=== PATIENT | female | born 1985 | race Caucasian/White ===

== ENCOUNTER 2020-02-05 14:06 | Outpatient (CLI) | payer OTHER, SELFPAY ==
--- NOTE | ~2020-02-05 | US_ITS ---
US breast RT complete DATE: 02/05/2020 14:53 INDICATION: Right breast lump felt by patient 3 weeks ago, but not currently TECHNIQUE: High-resolution ultrasound imaging of the complete right breast COMPARISON: None FINDINGS: No suspicious mass lesion or shadowing is evident. IMPRESSION: BI-RADS Category 1: Negative Recommendation: Routine mammographic screening beginning at age 40. Reviewed, dictated and finalized at [facility]. Reviewed, dictated and finalized at [facility].
== END 2020-02-05 14:07 | disposition home or self-care (01) ==
PROVIDERS: PCP Emergency Medicine; Visit Provider Nurse Practitioner Obstetrics & Gynecology
DX: N63.10 Unspecified lump in the right breast, unspecified quadrant (principal)
CPT/HCPCS: 76641

== ENCOUNTER 2020-02-10 04:28 | Outpatient (CLI) | payer OTHER, SELFPAY ==
[2020-02-10 21:19] LABS: SARS-CoV-2 RNA PCR Positive
== END 2020-02-10 04:29 | disposition home or self-care (01) ==
LOC: ANHCOVIDDT 04:28
PROVIDERS: PCP Emergency Medicine; Visit Provider Obstetrics & Gynecology
DX: Z01.818 Encounter for other preprocedural examination (principal); Z11.59 Encounter for screening for other viral diseases; U07.1 COVID-19
CPT/HCPCS: 87635; C9803; U0003

== ENCOUNTER 2020-02-24 02:08 | Outpatient (CLI) | payer OTHER, SELFPAY ==
[2020-02-24 18:09] LABS: SARS-CoV-2 RNA PCR Positive
== END 2020-02-24 02:09 | disposition home or self-care (01) ==
LOC: ANHCOVIDDT 02:09
PROVIDERS: PCP Emergency Medicine; Visit Provider Obstetrics & Gynecology
DX: Z01.818 Encounter for other preprocedural examination (principal); Z11.59 Encounter for screening for other viral diseases; U07.1 COVID-19
CPT/HCPCS: 87635; C9803; U0003

== ENCOUNTER 2020-03-02 00:28 | Outpatient (CLI) | payer OTHER, SELFPAY ==
[2020-03-02 18:31] LABS: SARS-CoV-2 RNA PCR Positive
== END 2020-03-02 00:29 | disposition home or self-care (01) ==
LOC: ANHCOVIDDT 00:28
PROVIDERS: PCP Emergency Medicine; Visit Provider Obstetrics & Gynecology
DX: U07.1 COVID-19 (principal)
CPT/HCPCS: 87635; C9803; U0003

== ENCOUNTER 2020-03-18 14:01 | Emergency (ER) | payer OTHER, SELFPAY ==
[2020-03-18 14:18] VITALS: BP 113/70; PULSE 73; RESP 16; TEMP 36.4; O2SAT 100
--- NOTE | 2020-03-18 14:30 | ED.GENADULT ---
HPI - General Adult General Chief complaint: Dizziness Stated complaint: Light-headed/ dizziness Time Seen by Provider: 03/18/20 14:30 Source: patient Mode of arrival: ambulatory Limitations: no limitations History of Present Illness HPI narrative: 34-year-old female patient presents to the [facility] with complaints of dizziness that started yesterday. Patient states that she noticed that when she would get up really quick from a laying position or bending over when she was giving her kids a bath she would have episodes of dizziness. Patient states it did not last and that it did go back to normal eventually. Denies any fevers, nausea, vomiting or diarrhea. Patient states that she was diagnosed with COVID-19 in January but has recovered without any difficulty. Related Data Home Medications Medication Instructions Recorded Confirmed Calcium 600 + D(3) 1 tablet PO DAILY 10/25/19 03/18/20 Thyroid Booster Supplement 1 tablet PO DAILY 10/25/19 03/18/20 cyanocobalamin (vitamin B-12) 1,000 mcg IM WEEKLY 10/25/19 03/18/20 cyclosporine [Restasis] 1 drp OPHTHALMIC (EYE) BID 10/25/19 03/18/20 simvastatin 10 mg PO DAILY 10/25/19 03/18/20 Allergies Allergy/AdvReac Type Severity Reaction Status Date / Time morphine Allergy Unknown BLISTER/ADEN Verified 03/18/20 14:21 H Review of Systems Review of Systems: Narrative: CONSTITUTIONAL: Denies fever, chills, or sweats. EYES: Denies visual changes, redness, or discharge. ENT: Denies rhinorrhea, congestion, sore throat, or otalgia. CARDIOVASCULAR: Denies chest pain, palpitations, or edema. RESPIRATORY: Denies cough or dyspnea. GASTROINTESTINAL: Denies abdominal pain, nausea, vomiting, or diarrhea. GENITOURINARY: Denies dysuria or hematuria. SKIN: Denies rash or itching. MUSCULOSKELETAL: Denies back pain, joint pain, or myalgia. NEUROLOGIC: Denies headache, numbness, or weakness. Positive dizziness with position changes PSYCHIATRIC: Denies anxiety or depression. [facility] Family History Family History Sibling Asthma Father Family history of elevated blood lipids Mother Family history of cardiac disorder Social History Social History (Reviewed 08/03/20 @ 14:30 by JAIRON Cuellar Smoking status: Never smoker Alcohol intake: current Gender identity (if verbalized by the patient): Female Comments At the time of my signature I agree with nursing past medical history, surgical, social, and family history. There is no relevant family history pertinent to the presenting complaint. Exam Narrative: Exam Narrative: GENERAL: Well-appearing, well-nourished, and in no acute distress. HEAD: Normocephalic, atraumatic. EYES: PERRLA and EOMI. ENT: Nares clear, no rhinorrhea or epistaxis. Mucous membranes moist. NECK: Supple. No lymphadenopathy CHEST: Clear to auscultation. No respiratory distress. HEART: Regular rate and rhythm. No murmur heard. Normal peripheral pulses. ABDOMEN: Soft, nontender, nondistended, normal active bowel sounds. EXTREMITIES: Normal range of motion. No edema. SKIN: Warm, dry, no rash. NEURO: Alert and oriented x4, GCS 15. Cranial nerves II through XII grossly intact. No focal neurological deficits. Normal muscle strength and tone. Normal deep tendon reflexes. Negative Babinski, normal finger to nose coordination he had normal heel to campbell glide. Speech is clear. Normal gait. Negative Romberg and no pronator drift Course Vital Signs Vital signs: Vital Signs Temperature 36.4 C 03/18/20 14:18 Pulse Rate 73 03/18/20 14:18 Respiratory Rate 16 03/18/20 14:18 Blood Pressure 113/70 03/18/20 14:18 Pulse Oximetry 100 03/18/20 14:18 Temperature 36.4 C 03/18/20 14:18 Pulse Rate 73 03/18/20 14:18 Respiratory Rate 16 03/18/20 14:18 Blood Pressure 113/70 03/18/20 14:18 Pulse Oximetry 100 03/18/20 14:18 Vital signs reviewed. Medical Decision Making Differential Diagnosi
== END 2020-03-18 15:08 | disposition home or self-care (01) ==
PROVIDERS: Emergency Provider Nurse Practitioner Family; PCP Emergency Medicine
DX: H81.10 Benign paroxysmal vertigo, unspecified ear (principal)
CPT/HCPCS: 99213; G0463

== ENCOUNTER 2020-03-25 01:51 | Outpatient (CLI) | payer OTHER, SELFPAY ==
[2020-03-25 18:20] LABS: SARS-CoV-2 RNA PCR Negative
== END 2020-03-25 01:52 | disposition home or self-care (01) ==
LOC: ANHCOVIDDT 01:51
PROVIDERS: PCP Emergency Medicine; Visit Provider Obstetrics & Gynecology
DX: Z01.812 Encounter for preprocedural laboratory examination (principal); Z11.59 Encounter for screening for other viral diseases
CPT/HCPCS: 87635; C9803; U0003

== ENCOUNTER 2020-03-27 01:43 | Day surgery (SDC) | payer OTHER, SELFPAY ==
[2019-10-25 11:22] VITALS: BMI 28.9
[2020-01-30 17:24] VITALS: BMI 29.2
[2020-02-13 15:17] VITALS: BMI 29.2
[2020-03-27] VITALS (8 sets, daily range): BP systolic 90–108; BP diastolic 54–69; PULSE 61–84; RESP 12–16; TEMP 36.3–36.9; O2SAT 96–100
[2020-03-27] MEDS: LACTATED RINGERS 1,000 ML 30 ML IV CONT ×2 (06:25→09:20)
[2020-03-27] MEDS: KETOROLAC 15 MG/ML VIAL (*BKC) IV PUSH (06:32)
[2020-03-27] MEDS: ACETAMINOPHEN 500 MG TABLET 1000 MG PO (06:32)
--- NOTE | 2020-03-27 06:55 | WPDHPUPDATE1 ---
History and Physical Update Update Date/Time: 03/27/20 06:55 History and Physical has been reviewed, including an updated exam of the patient. There are NO changes in the patient's condition. Risks, benefits, and alternatives have been discussed and questions answered. Patient agrees to proceed with procedure.
--- NOTE | 2020-03-27 06:59 | WPDANESEPPF ---
Anes - Initial Pre Proc Eval Procedure: Operation Date: 03/27/20 07:30 Proposed Procedures p Diagnostic Laparoscopy - April Denson MD Date/Time: 03/27/20 06:59 Surgeon: April Denson MD Pre Op Diagnosis: Dyspareunia, Pelvic Pain Patient Data Age: 35 Gender: F Height: 5 ft Weight: 67 kg Last Vital Signs Temp 36.3 C L 03/27/20 06:16 Pulse 69 03/27/20 06:16 Resp 16 03/27/20 06:16 BP 101/68 03/27/20 06:16 Pulse Ox 100 03/27/20 06:16 Allergies Allergy/AdvReac Type Severity Reaction Status Date / Time morphine Allergy Unknown BLISTER/ADEN Verified 03/27/20 06:50 H Home Medications Medication Instructions Recorded Confirmed Type Calcium 600 + D(3) 1 tablet PO DAILY 10/25/19 03/27/20 History Thyroid Booster Supplement 1 tablet PO DAILY 10/25/19 03/27/20 History cyanocobalamin (vitamin B-12) 1,000 mcg IM WEEKLY 10/25/19 03/27/20 History cyclosporine [Restasis] 1 drp OPHTHALMIC (EYE) BID 10/25/19 03/27/20 History simvastatin 10 mg PO DAILY 10/25/19 03/27/20 History meclizine 25 mg PO TID PRN #14 tablet 03/18/20 03/27/20 Rx Patient hx anesthesia problems: other (vertigo) Family hx anesthesia problems: none PMFSH Past Medical History Medical History Hyperlipidemia Family History Family History Sibling Asthma Father Family history of elevated blood lipids Mother Family history of cardiac disorder Social History Social History Smoking status: Never smoker Alcohol intake: current Gender identity (if verbalized by the patient): Female Anes - Eval Final PreProcedure Day of Procedure 03/27/20 06:59 Patient weight: overweight Heart: regular rate and rhythm Lungs: clear to auscultation Airway: Mallampati scale class II Neurological: alert and oriented Last oral intake: >/= 8 hours ASA classification: II Emergent: no Anesthetic plan: proceed Anesthesia type and monitoring: general ETT and standard monitoring Informed Consent: The patient's anesthetic plan and its attendant risks and benefits were discussed with the patient/family/POA. Questions were solicited and answers provided to the satisfaction of the patient/family/POA.
--- NOTE | 2020-03-27 07:03 | PM.IMHP ---
H&P: HPI History of Present Illness Date/Time: 03/27/20 07:03 Chief complaint: Dyspareunia, Pelvic Pain Narrative: Sruthi Koch is a 35 year old female With longstanding pelvic pain. She is known to have pelvic adhesions previously. we have agreed to proceed with diagnostic laparoscopy. She understands the procedure. It was explained to her in detail. She understands that injuries may occur during the surgery result in hospitalization, more surgery, and severe illness. She understands risk of injury to proceed [facility] is risk of hemorrhage and infection. Review of Systems Constitutional: Constitutional: Reports no additional constitutional complaints, Denies fatigue, Denies headache(s), Denies lethargy and Denies weakness Eyes: Eyes: Reports no additional eye complaints, Denies blurry vision and Denies photophobia ENT: Reports as per HPI, Denies headache(s) and Denies neck pain Cardiovascular: Cardiovascular: Denies chest pain, Denies diaphoresis, Denies leg edema, Denies palpitations and Denies dyspnea Respiratory: Respiratory: Denies hemoptysis, Denies dyspnea and Denies wheezing Gastrointestinal: Gastrointestinal: Denies abdominal pain, Denies melena, Denies bloating, Denies hematochezia, Denies nausea and Denies vomiting Genitourinary: Genitourinary: Reports no additional female genitourinary complaints Musculoskeletal: Musculoskeletal: Denies joint swelling, Denies neck pain, Denies numbness and Denies stiffness Neurologic: Denies Abnormal speech present, Denies confusion, Denies headache(s), Denies numbness and Denies weakness Psychiatric: Psychiatric: Denies anxiety, Denies confusion, Denies depression, Denies homicidal ideation and Denies suicidal ideation Endocrine: Endocrine: Denies fatigue and Denies palpitations Allergic/Immunologic: Allergic/Immunologic: Denies wheezing PMFSH Past Medical History Medical History Hyperlipidemia Family History Family History Sibling Asthma Father Family history of elevated blood lipids Mother Family history of cardiac disorder Social History Social History Smoking status: Never smoker Alcohol intake: current Gender identity (if verbalized by the patient): Female Meds Home Medications and Allergies Home Medications Medication Instructions Recorded Confirmed Type Calcium 600 + D(3) 1 tablet PO DAILY 10/25/19 03/27/20 History Thyroid Booster Supplement 1 tablet PO DAILY 10/25/19 03/27/20 History cyanocobalamin (vitamin B-12) 1,000 mcg IM WEEKLY 10/25/19 03/27/20 History cyclosporine [Restasis] 1 drp OPHTHALMIC (EYE) BID 10/25/19 03/27/20 History simvastatin 10 mg PO DAILY 10/25/19 03/27/20 History meclizine 25 mg PO TID PRN #14 tablet 03/18/20 03/27/20 Rx Allergies Allergy/AdvReac Type Severity Reaction Status Date / Time morphine Allergy Unknown BLISTER/ADEN Verified 03/27/20 06:50 H Vital Signs Vital Signs - 24 hr 03/27/20 06:16 Temperature 97.4 F L Pulse Rate 69 Respiratory Rate 16 Blood Pressure 101/68 Pulse Oximetry 100 Exam Const: General: healthy appearing, comfortable and no acute distress; No confusion Orientation/consciousness: No confusion Eyes: Direct Ophthalmoscopy: No photophobia Resp: Auscultation: clear to auscultation bilaterally, no rales, no rhonchi and no wheezes Cardio: Rate: regular rate Heart sounds: no click, no murmurs and no rubs GI: Inspection: non-distended GI Palp: No abdominal tenderness Auscultation: normal bowel sounds Neuro: General: No confusion Speech: No Abnormal speech present Extrem: General: normal to inspection, no pedal edema and no calf tenderness Assessment and Plan Assessment and plan (1) Pelvic pain: Code(s): R10.2 - Pelvic and perineal pain Status: Acute Assess
[2020-03-27] MEDS: SCOPOLAMINE 1.5 MG PATCH TRANSDERM (07:19)
--- NOTE | 2020-03-27 09:27 | PM.PROC ---
Procedure Note - Detailed Date of procedure: 03/27/20 Pre-op diagnosis: Dyspareunia, Pelvic Pain Procedure performed: Diagnostic laparoscopy, left salpingectomy, adhesiolysis-1 hour Description of procedure: The patient was taken the operating room. She was prepped and draped in the dorsal lithotomy position after induction of general anesthesia. A 5 mm left upper quadrant incision was made in the abdominal skin with a scalpel. A 5 mm trocar was inserted the intra-abdominal cavity under direct visualization of the scope. A 5 mm left lower quadrant incision was made with the scalp on the abdominal skin and a 5 mm trocar was inserted the intra-abdominal cavity under direct visualization of the scope. A 5 mm infraumbilical incision was made with scalpel and a 5 mm trocar was inserted into the intra-abdominal cavity under direct visualization of the scope. The fallopian tube on the left was removed using cautery and scissors. There was a hydrosalpinx there. The paratubal tissue was cauterized and transected. The specimen 2nd at the left lower quadrant trocar site. 1 hour adhesiolysis was performed. Using sharp and blunt dissection and instilling the bladder with normal saline. The bladder, uterus, cervix, anterior pelvis were all . Interceed was placed in this space. The pelvis was irrigated with copious amounts of normal saline. The pneumoperitoneum was reduced. The trocars were removed. The patient was taken recovery room stable condition. Sponge lap and needle counts were correct x2. Anesthesia: GETA Surgeon: April Denson MD Estimated blood loss (mL): 50 Drains: No Packing: No Pathology: yes Complications: No immediate complications Condition: stable Disposition: PACU Findings: Dense adhesions between the anterior pelvis, bladder and the uterus. There was a hydrosalpinx on the left side.
== END 2020-03-27 11:27 | disposition home or self-care (01) ==
PROVIDERS: PCP Emergency Medicine; Visit Provider Obstetrics & Gynecology
PROC: (CPT 49320; principal; 2020-03-27 07:30)
DX: R10.2 Pelvic and perineal pain (principal); N94.10 Unspecified dyspareunia; N73.6 Female pelvic peritoneal adhesions (postinfective); N70.11 Chronic salpingitis; E78.5 Hyperlipidemia, unspecified
CPT/HCPCS: 58661; 88302; A9270; J0330; J1100; J1885; J2250; J2405; J2704; J3010; J7030; J7120

== ENCOUNTER 2020-08-26 13:35 | Outpatient (CLI) | payer OTHER, SELFPAY | END 2020-08-26 13:36 | disposition home or self-care (01) | LOC: ANHSURGERY 13:38 | PROVIDERS: PCP Emergency Medicine; Visit Provider Obstetrics & Gynecology | DX: Z01.812 Encounter for preprocedural laboratory examination (principal); R10.2 Pelvic and perineal pain | CPT/HCPCS: 36415; 86850; 86900; 86901 ==

== ENCOUNTER 2020-08-31 00:40 | Outpatient (CLI) | payer OTHER, SELFPAY ==
[2020-08-31 18:47] LABS: SARS-CoV-2 RNA PCR Negative
== END 2020-08-31 00:41 | disposition home or self-care (01) ==
LOC: ANHCOVIDDT 00:41
PROVIDERS: PCP Emergency Medicine; Visit Provider Obstetrics & Gynecology
DX: Z01.812 Encounter for preprocedural laboratory examination (principal); Z20.822 Contact with and (suspected) exposure to COVID-19
CPT/HCPCS: C9803; U0003; U0005

== ENCOUNTER 2020-09-04 01:56 | Day surgery (SDC) | payer OTHER, SELFPAY ==
[2020-08-23 14:24] VITALS: BMI 29.2
[2020-09-04] VITALS (11 sets, daily range): BP systolic 85–110; BP diastolic 52–63; PULSE 55–86; RESP 12–18; TEMP 36.7–37.1; O2SAT 94–100
--- NOTE | 2020-09-04 08:34 | WPDANESEPPF ---
Anes - Initial Pre Proc Eval Procedure: Operation Date: 09/04/20 13:00 Proposed Procedures p Total Laparoscopic Hysterectomy - April Denson MD Date/Time: 09/04/20 08:34 Surgeon: April Denson MD Pre Op Diagnosis: Pelvic Pain, Dyspareunia Patient Data Age: 35 Gender: F Height: 1.52 m Weight: 68.04 kg Allergies Allergy/AdvReac Type Severity Reaction Status Date / Time morphine Allergy Unknown LITTLE Verified 09/04/20 11:12 ITCHY BLISTER ON CHEST Home Medications Medication Instructions Recorded Confirmed Type Calcium 600 + D(3) 1 tablet PO DAILY 10/25/19 08/23/20 History Thyroid Booster Supplement 1 tablet PO DAILY 10/25/19 08/23/20 History levothyroxine 50 mcg PO DAILY 08/23/20 08/23/20 History Patient hx anesthesia problems: none Family hx anesthesia problems: none PMFSH Past Medical History Medical History (Updated 09/04/20 @ 08:35 by Martinez Mary MD) Asthma Hyperlipidemia Overweight (BMI 25.0-29.9) Family History Family History Sibling Asthma Father Family history of elevated blood lipids Mother Family history of cardiac disorder Social History Social History Smoking status: Never smoker Alcohol intake: current Substance use: never Substance use type: does not use Living arrangements: with family Gender identity (if verbalized by the patient): Female Spiritual care concerns: No Anes - Eval Final PreProcedure Day of Procedure 09/04/20 08:34 Patient weight: overweight Heart: regular rate and rhythm Lungs: clear to auscultation and normal air movement Airway: Mallampati scale class II Neurological: alert and oriented Last oral intake: >/= 8 hours ASA classification: II Emergent: no Anesthetic plan: proceed Anesthesia type and monitoring: general ETT Informed Consent: The patient's anesthetic plan and its attendant risks and benefits were discussed with the patient/family/POA. Questions were solicited and answers provided to the satisfaction of the patient/family/POA.
[2020-09-04] MEDS: ACETAMINOPHEN 500 MG TABLET 1000 MG PO (11:09)
[2020-09-04] MEDS: LACTATED RINGERS 1,000 ML 30 ML IV CONT ×2 (11:20→14:27)
[2020-09-04] MEDS: KETOROLAC 15 MG/ML VIAL (*BKC) IV PUSH (11:26)
--- NOTE | 2020-09-04 11:58 | WPDHPUPDATE1 ---
History and Physical Update Update Date/Time: 09/04/20 11:58 History and Physical has been reviewed, including an updated exam of the patient. There are NO changes in the patient's condition. Risks, benefits, and alternatives have been discussed and questions answered. Patient agrees to proceed with procedure.
[2020-09-04] MEDS: ceFAZolin 2 GM/D5W 50 ML 2 GM/50 ML BAG IVPB (12:24)
--- NOTE | 2020-09-04 14:30 | PM.PROC ---
Procedure Note - Detailed Date of procedure: 09/04/20 Pre-op diagnosis: Pelvic Pain, Dyspareunia Myoma Post-op diagnosis: same Procedure performed: Total laparoscopic hysterectomy. Description of procedure: The patient was taken to the operating room. She was prepped and draped in the dorsal lithotomy position. A speculum was placed in the vagina. The cervix was grasped with a tenaculum. Stay sutures were placed at 3 and 9:00 a.m. of 0 Vicryl. The stay sutures were brought through the Britt up. The OXANA manipulator was placed in the vagina with a fixed Britt cup. The cup was then pushed up around the cervix. The sutures were tied to the handle of the OXANA manipulator. A 5 mm incision was made on the abdominal skin of the left upper quadrant using a scalpel. A 5 mm trocar was inserted into the intra-abdominal cavity under direct visualization the scope. Pneumoperitoneum was achieved. An 11 mm incision was made in the left lower quadrant of the abdomen with a scalpel. A 11 mm trocar was inserted into the intra-abdominal cavity under direct visualization the scope. A 5 mm periumbilical incision was made. A 5 mm scope was placed into the intra-abdominal cavity under direct visualization of the scope. The right fallopian tube was removed. The paratubal tissue was cauterized transected with LigaSure cautery from the distal portion by the ovary around to the cornual area. The tube was transected and amputated. It was removed the left lower quadrant trocar site. The suspensory ligament of the ovary was cauterized and transected with ligature cautery in a bilateral fashion. The fallopian tubes were cauterized and transected in a bilateral fashion with LigaSure cautery. The round ligaments were cauterized and transected in bilateral fashion with LigaSure cautery. The round ligaments were cauterized and transected bilaterally with LigaSure cautery. The broad ligaments were cauterized and transected along the lateral aspects of the uterus down the level of the uterine arteries. A bladder flap was created using sharp and blunt dissection. The ureters were dissected out bilaterally down to the level of the uterine arteries. They could be visualized from the pelvic brim down the uterine arteries. Staying very close to the cervix the parametrium was cauterized transected in a stepwise fashion down to the level of the Britt cup. The Bladder flap was moved distally over the Britt cup using sharp and blunt dissection. The impression of the entire cup was visualized around the cervix. An incision was made with unipolar cautery down under the Britt cup creating a colpotomy incision all the way around the cervix. The uterus was taken out through the vagina. A pneumo occluder was placed in the vagina. The vagina was closed with 0 V lock suture in a running fashion. The ureters were identified again and found to be intact to the level of the uterine arteries. The pelvis was irrigated with a copious amount of antibiotic irrigation. The pneumoperitoneum was reduced. The trocars were removed. The skin was closed subcuticular 4 Monocryl covered with Dermabond. The pneumo occluder was removed from the vagina. The vagina was irrigated with Betadine. The patient tolerated the procedure well. She was taken to the recovery room in stable condition. Sponge lap and needle counts were correct x2. Anesthesia: GETA Surgeon: April Denson MD Estimated blood loss (mL): 200 Drains: No Packing: No Pathology: yes Complications: No immediate complications Condition: stable Disposition: PACU Findings: Grossly normal appearing tubes and ovaries. Uterus - XXX
[2020-09-04] MEDS: fentaNYL CITRATE INJ (*CRX) 100 MCG/2 ML VIAL 25 MCG IV PUSH ×5 (14:43→15:44)
[2020-09-04] MEDS: HYDROmorphone HCL INJ (*CRX) 1 MG/ML SYR 0.25 MG IV PUSH ×8 (14:57→15:35)
--- NOTE | 2020-09-04 15:53 | PC.NURSE ---
This patient, Sruthi Koch, was received from PACU per bed to room 289. Patient oriented to unit policies and routines
[2020-09-04] MEDS: DEXTROSE 5%/0.45% SOD CHL 1,000 ML 125 ML IV CONT (16:11)
[2020-09-04] MEDS: KETOROLAC 30 MG/ML VIAL (*BKC) IV PUSH (16:13)
[2020-09-04] MEDS: ONDANSETRON INJ 4 MG/2 ML VIAL IV PUSH (16:41)
[2020-09-04] MEDS: HYDROcodone/acetaminophen (*CRX) 10-325 MG TABLET 1 TAB PO ×2 (17:35→21:14)
[2020-09-04] MEDS: SCOPOLAMINE 1.5 MG PATCH TRANSDERM (18:23)
[2020-09-04] MEDS: diphenhydrAMINE HCl INJ 50 MG/ML VIAL (18:26)
[2020-09-04] MEDS: METOCLOPRAMIDE HCL INJ 10 MG/2 ML VIAL IV PUSH (18:35)
[2020-09-05] VITALS: BP 99/58; PULSE 76; RESP 14; TEMP 37.1; O2SAT 99
[2020-09-05] MEDS: HYDROcodone/acetaminophen (*CRX) 10-325 MG TABLET 1 TAB PO (00:42)
[2020-09-05] MEDS: IBUPROFEN 600 MG TABLET PO ×2 (00:42→07:38)
[2020-09-05] MEDS: HYDROcodone/acetaminophen (*CRX) 5-325 MG TABLET 1 TAB PO ×3 (04:22→10:30)
[2020-09-05 04:28] VITALS: BP 89/47; PULSE 72; RESP 14; TEMP 36.8; O2SAT 99
--- NOTE | 2020-09-05 07:35 | WPDANESPN ---
Anes - Prog Note Post-Op Date/Time: 09/05/20 07:35 Cardiovascular status: normal Respiratory status: normal Airway patency: baseline Mental status: baseline Post-Op hydration status: normal Vital Signs: Last Vital Signs Temp 36.8 C 09/05/20 04:28 Pulse 72 09/05/20 04:28 Resp 14 09/05/20 04:28 BP 89/47 L 09/05/20 04:28 Pulse Ox 99 09/05/20 04:28 Pain Score (VAS): 0 I/O: Intake & Output 09/04/20 09/04/20 09/05/20 15:59 23:59 07:59 Intake Total 550 500 500 Output Total 30 1350 Balance 520 -850 500 Post-procedural complaints: none Patient Feedback: Patient satisfied with anesthetic care.
[2020-09-05 07:45] VITALS: BP 86/56; PULSE 60; RESP 18; TEMP 37.3; O2SAT 100
--- NOTE | 2020-09-05 08:03 | PM.GYNPNOP ---
TACTICAL DECEPTION PLANS OFFICER - A/P Postoperative Procedures: Procedures Operation Date: 09/04/20 13:00 Actual Procedures Side Surgeon p Total Laparoscopic Hysterectomy, Right Salpingectomy Not Applicable April Denson MD Postoperative day: 1 Postoperative status: doing well and other (Tollerating Regular Diet) Postoperative plan: routine post-op care and discharge Time Spent With Patient Time: Total time spent is greater than 50% in coordination of care (as documented) at patient's floor/unit and/or counseling patient: Time with patient: 15 - 25 minutes TACTICAL DECEPTION PLANS OFFICER- PN:Subj Post-Op Subjective Date/time seen: 09/05/20 08:03 Subjective: patient reports feeling better, pain is well controlled and patient is tolerating oral intake Exam Const: General: cooperative, healthy appearing, comfortable and no acute distress Resp: Auscultation: no crackles, no rales, no rhonchi and no wheezes Cardio: Rhythm: regular rhythm Heart sounds: no click and no murmurs GI: Inspection: non-distended Auscultation: normal bowel sounds Other: Incisions - CDI Extrem: General: normal to inspection, no pedal edema and no calf tenderness TACTICAL DECEPTION PLANS OFFICER - PN: Obj Data Vital Signs Vital Signs: Vital Signs - 24 hr 09/04/20 10:56 09/04/20 14:27 09/04/20 14:40 Temperature 98.8 F 98.0 F Pulse Rate 62 86 55 L Respiratory Rate 16 14 12 Blood Pressure 110/62 91/55 L 100/63 Pulse Oximetry 100 100 100 09/04/20 14:55 09/04/20 15:10 09/04/20 15:25 Temperature Pulse Rate 63 59 L 62 Respiratory Rate 12 12 12 Blood Pressure 104/62 94/56 L 95/54 L Pulse Oximetry 97 96 95 09/04/20 15:40 09/04/20 16:00 09/04/20 16:15 Temperature 98.2 F Pulse Rate 79 65 60 Respiratory Rate 12 18 Blood Pressure 98/55 L 97/57 L 89/60 L Pulse Oximetry 94 99 99 09/04/20 17:00 09/04/20 17:30 09/05/20 00:00 Temperature 98.8 F Pulse Rate 59 L 63 76 Respiratory Rate 18 14 Blood Pressure 88/53 L 85/52 L 99/58 L Pulse Oximetry 96 95 99 09/05/20 04:28 Temperature 98.2 F Pulse Rate 72 Respiratory Rate 14 Blood Pressure 89/47 L Pulse Oximetry 99 Intake/Output Intake/Output: Intake & Output 09/02/20 09/03/20 09/04/20 09/05/20 23:59 23:59 23:59 23:59 Intake Total 1050 500 Output Total 1380 Balance -330 500 Meds/Results Medications: Active Medications Generic Name Dose Route Start Last Admin Trade Name Freq PRN Reason Stop Dose Admin Hydrocodone Bitart/Acetaminophen 1 tab 09/04/20 15:51 09/05/20 07:38 Hydrocodone/Acetaminophen (*Crx) 5-325 Mg Tablet PO 1 tab Q3H PRN Administration Pain Rated 5 or Less Hydrocodone Bitart/Acetaminophen 1 tab 09/04/20 15:51 09/05/20 00:42 Hydrocodone/Acetaminophen (*Crx) 10-325 Mg Tablet PO 1 tab Q3H PRN Administration Pain Rated 6 or Greater Dextrose/Sodium Chloride 1,000 mls @ 125 mls/hr 09/04/20 15:51 09/05/20 00:42 Dextrose 5% Sodium Chloride 0.45% IV CONT Not Given .Q8H EMIR Ibuprofen 600 mg 09/04/20 15:51 09/05/20 07:38 Ibuprofen 600 Mg Tablet PO 600 mg Q6H PRN Administration Cramping Ketorolac Tromethamine 30 mg 09/04/20 15:51 09/04/20 16:13 Ketorolac 30 Mg/Ml Vial (*Bkc) IV PUSH 09/09/20 15:52 30 mg Q6H PRN Administration Pain Rated 4-6 Levothyroxine Sodium 50 mcg 09/05/20 06:30 09/05/20 07:34 Levothyroxine Sodium 50 Mcg Tablet PO Not Given DAILY@0630 EMIR Metoclopramide HCl 10 mg 09/04/20 18:18 09/04/20 18:35 Metoclopramide Hcl Inj 10 Mg/2 Ml Vial IV PUSH 10 mg Q6HR PRN Administration Nausea And Vomiting Naloxone HCl 0.1 mg 09/04/20 15:51 Naloxone Hcl 0.4 Mg/Ml Vial IV PUSH Q2M PRN Respiratory rate less than 10 Ondansetron HCl 4 mg 09/04/20 15:51 09/04/20 16:41 Ondansetron Inj 4 Mg/2 Ml Vial IV PUSH 4 mg Q6H PRN Administration Nausea And Vomiting
== END 2020-09-05 11:11 | disposition home or self-care (01) ==
LOC: ANHSURGERY 10:46 → ANHOB2 15:53
PROVIDERS: PCP Emergency Medicine; Visit Provider Obstetrics & Gynecology
PROC: 0UT9FZZ Resection of Uterus, Via Natural or Artificial Opening With Percutaneous Endoscopic Assistance (ICD-10-PCS; CPT 58571; principal; 2020-09-04 13:00)
DX: R10.2 Pelvic and perineal pain (principal); N94.12 Deep dyspareunia; N80.0 Endometriosis of uterus; D25.1 Intramural leiomyoma of uterus; D25.2 Subserosal leiomyoma of uterus; N94.4 Primary dysmenorrhea
CPT/HCPCS: 58571; 88307; 88342; 99199; A9270; J0330; J0690; J1100; J1170; J1200; J1885; J2250; J2370; J2405; J2704; J2710; J2765; J3010; J7030; J7120

== ENCOUNTER 2020-09-13 20:58 | Emergency (ER) | payer OTHER, SELFPAY ==
--- NOTE | ~2020-09-13 | CT_ITS ---
EXAMINATION: CTA chest PE protocol DATE: 09/13/2020 22:06 INDICATION: Chest pain, shortness of breath TECHNIQUE: Computed tomography angiography (CTA) of the chest was performed with 100 mL Omnipaque-350 intravenous contrast timed to evaluate the pulmonary arteries. Coronal maximum intensity projection 3D-reconstructions were created by the technologist. Automated exposure control and iterative reconst ruction technique were employed. Exam dose: 313.25 mGy-cm total exam DLP. COMPARISON: 11/24/2018 CT pulmonary scan 09/13/2020 PA and lateral chest FINDINGS: There is moderate enhancement of the pulmonary arteries and no apparent pulmonary embolism. No thoracic aortic dissection or aneurysm. Normal heart size. No pericardial or pleural effusion. No hilar or mediastinal mass lesion or lymphadenopathy. The lungs are clear of infiltrate or consolidation. IMPRESSION: Negative examination; no apparent pulmonary emboli Reviewed, dictated and finalized at [facility]. Reviewed, dictated and finalized at [facility]. CLE FARE COLLECTOR
--- NOTE | ~2020-09-13 | XR_ITS ---
XR chest 2V DATE: 09/13/2020 21:23 INDICATION: Mid right-sided chest pain. Hysterectomy 9 days ago. History of asthma. TECHNIQUE: PA and lateral views COMPARISON: 01/10/2019 2 view chest FINDINGS: Normal heart size. No hilar or mediastinal enlargement. No pulmonary infiltrate or consolid ation, pleural effusion or pulmonary vascular congestion or pneumothorax. IMPRESSION: No active cardiopulmonary disease Reviewed, dictated and finalized at [facility]. ILIZATION TECH
[2020-09-13 21:00] VITALS: BP 109/73; PULSE 82; RESP 18; TEMP 36.2; O2SAT 100
--- NOTE | 2020-09-13 21:13 | ECG_ITS ---
Measurements Intervals [place] Rate: 88 P: 56 AK: 144 QRS: 24 QRSD: 90 T: 58 QT: 356 QTc: 431 Interpretive Statements SINUS RHYTHM INCOMPLETE RIGHT BUNDLE BRANCH BLOCK NONSPECIFIC T-WAVE ABNORMALITY- ANT/INF LEADS BORDERLINE ECG Electronically Signed On 09-13-2020 21:58:58 WATCH ENGINE OPERATOR by Dandy Frost D.O.
[2020-09-13 21:23] LABS: Basophils Absolute Auto 0.1 K/mm3 (0.0-0.1); Basophils Percent Auto 0.5 % (0.2-1.2); Eosinophils Absolute Auto 0.5 K/mm3 (0-0.3); Eosinophils Percent Auto 5.3 % (0-4.4); Hematocrit 38.8 % (37.0-47.0); Hemoglobin 12.3 g/dL (12.0-15.0); Immature Granulocyte Absolute 0.02 K/mm3 (0.00-0.031); Immature Granulocyte Percent A 0.2 % (0-0.5); Lymphocytes Absolute Auto 3.53 K/mm3 (0.9-3.2); Lymphocytes Percent Auto 35.1 % (18.3-44.2); Mean Corpuscular HGB Conc 31.7 g/dl (32-36); Mean Corpuscular Hemoglobin 28.1 pg (26-34); Mean Corpuscular Volume 88.6 fl (80-100); Monocytes Absolute Auto 0.7 K/mm3 (0.1-0.6); Monocytes Percent Auto 6.7 % (2.6-8.5); Neutrophils Absolute Auto 5.3 K/mm3 (1.3-6.7); Neutrophils Percent Auto 52.2 % (45.5-73.1); Platelet Count Result 318 k/mm3 (150-375); Red Blood Count 4.38 M/mm3 (4.2-5.4); Red Cell Distribution Width 13.1 % (11.5-14.5); White Blood Count 10.1 K/mm3 (4.5-10.0)
[2020-09-13 21:32] LABS: INR 0.9; Prothrombin Time 12.9 Seconds (11.1-14.7)
[2020-09-13 21:33] LABS: Partial Thromboplastin Time 30.2 SECONDS (22.3-36.8)
[2020-09-13 21:39] LABS: Anion Gap 6 mmol/L (8-16); Blood Urea Nitrogen 12 mg/dL (7-17); Calcium 8.9 mg/dL (8.4-10.2); Carbon Dioxide 29 mmol/L (22-30); Chloride 104 mmol/L (98-107); Estimated CRCL calculation 85 ml/min; Estimated Glomerular Filt Rate > 60; Glucose 92 mg/dL (65-105); Potassium 3.4 mmol/L (3.4-5.0); Sodium 139 mmol/L (137-145)
--- NOTE | 2020-09-13 21:46 | ED.CHESTPAIN ---
HPI - Chest Pain General Chief Complaint: Chest Pain Stated Complaint: tightness and pressure in ribs Time Seen by Provider: 09/13/20 21:14 Source: patient Mode of arrival: ambulatory Limitations: no limitations History of Present Illness HPI narrative: 35-year-old female Review of asthma She had a laparoscopic/vaginal hysterectomy on 09/04 without incident Today she woke up with discomfort in the right lower chest/upper abdomen area which is pleuritic No fever no cough Does not have swelling or pain in either leg Related Data Home Medications Medication Instructions Recorded Confirmed Calcium 600 + D(3) 1 tablet PO DAILY 10/25/19 09/04/20 Thyroid Booster Supplement 1 tablet PO DAILY 10/25/19 09/04/20 levothyroxine 50 mcg PO DAILY 08/23/20 09/04/20 Allergies Allergy/AdvReac Type Severity Reaction Status Date / Time morphine Allergy Unknown LITTLE Verified 09/04/20 11:12 ITCHY BLISTER ON CHEST Review of Systems Review of Systems: All systems reviewed & are unremarkable except as noted in HPI and below Constitutional: Constitutional: Denies chills, Denies fatigue, Denies fever(s), Denies headache(s) and Denies weakness Eyes: Eyes: Reports no additional eye complaints and Denies change in vision ENT: Denies headache(s), Denies epistaxis, Denies nasal congestion and Denies sore throat Cardiovascular: Cardiovascular: Reports chest pain, Denies leg edema, Denies palpitations and Denies dyspnea Respiratory: Respiratory: Denies cough, Denies dyspnea and Denies wheezing Gastrointestinal: Gastrointestinal: Denies abdominal pain, Denies diarrhea, Denies nausea and Denies vomiting Genitourinary: Genitourinary: Denies hematuria, Denies urinary frequency and Denies dysuria Musculoskeletal: Musculoskeletal: Denies deformity, Denies arthralgias, Denies joint swelling, Denies muscle weakness and Denies numbness Integumentary/Breasts: Skin/Breast: Denies rash and Denies wounds Neurologic: Denies headache(s), Denies focal weakness, Denies numbness and Denies weakness Psychiatric: Psychiatric: Reports no additional psychiatric complaints Endocrine: Endocrine: Denies fatigue and Denies palpitations Hematologic/Lymphatic: Hematologic/Lymphatic: Denies easy bleeding and Denies easy bruising Allergic/Immunologic: Allergic/Immunologic: Denies wheezing PMFSH Past Medical History Medical History (Updated 09/13/20 @ 23:26 by Alton Alonzo MD) Asthma Hyperlipidemia Overweight (BMI 25.0-29.9) Family History Family History Sibling Asthma Father Family history of elevated blood lipids Mother Family history of cardiac disorder Social History Social History Smoking status: Never smoker Alcohol intake: current Substance use: never Substance use type: does not use Gender identity (if verbalized by the patient): Female Spiritual care concerns: No Exam Const: General: no acute distress, well developed, alert and awake Nutritional Appearance: well nourished Orientation/consciousness: patient oriented x3 (alert) Limitations: no limitations HENMT: Head: normocephalic and atraumatic Ears: external ears normal General nose exam: No nasal discharge present and no epistaxis Face and sinus: face symmetric Eyes: Conjunctivae: conjunctivae normal Sclera: sclerae normal EOM: EOMs intact bilaterally Neck: Neck: normal visual inspection, supple and no JVD Chest: Chest palpation & inspection: deferred and no tenderness Resp: Effort & Inspection: normal respiratory effort Auscultation: clear to auscultation bilaterally, no rales, no rhonchi, no wheezes and other (BS =) Cardio: Rate: regular rate Rhythm: regular rhythm Heart sounds: no gallops and no murmurs GI: Inspection: normal to inspection GI Palp: Yes Soft to palpation and No Tenderness to palpation presen
[2020-09-13 21:51] LABS: Troponin I < 0.012 ng/mL (0.000-0.034)
[2020-09-13 22:32] VITALS: BP 96/62; PULSE 88; RESP 18; O2SAT 99
--- NOTE | 2020-09-13 23:09 | PC.NURSE ---
assumed care of pt at this time, received report from kaitlin hawkins
[2020-09-13 23:11] VITALS: BP 96/56; PULSE 98; RESP 18; O2SAT 98
[2020-09-14] VITALS: BP 105/74; PULSE 91; RESP 14; O2SAT 100
== END 2020-09-14 00:01 | disposition home or self-care (01) ==
PROVIDERS: Emergency Provider Emergency Medicine; PCP Emergency Medicine
DX: R07.9 Chest pain, unspecified (principal); J45.909 Unspecified asthma, uncomplicated; E78.5 Hyperlipidemia, unspecified; E66.3 Overweight; Z68.30 Body mass index [BMI] 30.0-30.9, adult; I45.10 Unspecified right bundle-branch block; R94.31 Abnormal electrocardiogram [ECG] [EKG]
CPT/HCPCS: 36415; 71046; 71275; 80048; 84484; 85025; 85610; 85730; 93005; 99284; Q9967

== ENCOUNTER 2020-09-23 08:54 | Outpatient (CLI) | payer OTHER, SELFPAY ==
--- NOTE | ~2020-09-23 | US_ITS ---
US right upper quadrant INDICATION: Epigastric and right upper quadrant pain. PROCEDURE: Realtime right upper abdominal ultrasound. COMPARISON: No prior studies for comparison. FINDINGS: The pancreas is normal without focal mass or pancreatic ductal dilation. Liver echotexture is normal without focal mass or intrahepatic biliary dilatation. There is normal directional flow i n the portal vein. The gallbladder is normal without stones, gallbladder wall thickening or pericholecystic fluid. Comm on bile duct measures 3 mm. No sonographic Gaines's sign. Right renal echotexture is grossly unremar kable. IMPRESSION: 1: Normal limited abdominal ultrasound. Reviewed, dictated and finalized at location [facility]. MS ADJUSTER CROP
== END 2020-09-23 08:55 | disposition home or self-care (01) ==
PROVIDERS: PCP Emergency Medicine; Visit Provider Internal Medicine Endocrinology, Diabetes & Metabolism
DX: K21.9 Gastro-esophageal reflux disease without esophagitis (principal)
CPT/HCPCS: 76705

== ENCOUNTER → 2020-10-12 01:25 | Outpatient (CLI) | payer OTHER, SELFPAY ==
[2020-10-12 19:42] LABS: SARS-CoV-2 RNA PCR Negative
== END ==
PROVIDERS: PCP Emergency Medicine; Visit Provider Internal Medicine Gastroenterology
DX: Z01.812 Encounter for preprocedural laboratory examination (principal); Z20.822 Contact with and (suspected) exposure to COVID-19
CPT/HCPCS: C9803; U0003; U0005

== ENCOUNTER 2020-10-15 01:43 | Day surgery (SDC) | payer OTHER, SELFPAY ==
[2020-09-27 13:50] VITALS: BMI 24.0
[2020-10-15 06:38] VITALS: BP 106/70; PULSE 74; RESP 20; TEMP 36.6; O2SAT 100; BMI 30.9
[2020-10-15] MEDS: LACTATED RINGERS 1,000 ML 150 ML IV CONT (06:47)
--- NOTE | 2020-10-15 07:25 | WPDANESEPPF ---
Anes - Initial Pre Proc Eval Procedure: Operation Date: 10/15/20 08:00 Proposed Procedures p Esophagogastroduodenoscopy - Isaac Smith MD Date/Time: 10/15/20 07:25 Surgeon: Isaac Smith MD Pre Op Diagnosis: dysphagia Patient Data Age: 35 Gender: F Height: 5 ft Weight: 71.8 kg Last Vital Signs Temp 97.8 F 10/15/20 06:38 Pulse 74 10/15/20 06:38 Resp 20 10/15/20 06:38 BP 106/70 10/15/20 06:38 Pulse Ox 100 10/15/20 06:38 Allergies Allergy/AdvReac Type Severity Reaction Status Date / Time morphine Allergy Unknown LITTLE Verified 09/16/20 14:40 ITCHY BLISTER ON CHEST Home Medications Medication Instructions Recorded Confirmed Type Calcium 600 + D(3) 1 tablet PO DAILY 10/25/19 09/27/20 History famotidine 40 mg PO DAILY 09/27/20 09/27/20 History levothyroxine 75 mcg PO DAILY 09/27/20 09/27/20 History Patient hx anesthesia problems: none Family hx anesthesia problems: none PMFSH Past Medical History Medical History Asthma Hyperlipidemia Overweight (BMI 25.0-29.9) Family History Family History Sibling Asthma Father Family history of elevated blood lipids Mother Family history of cardiac disorder Social History Social History Smoking status: Never smoker Alcohol intake: never Substance use: never Substance use type: does not use Living arrangements: with family Gender identity (if verbalized by the patient): Female Spiritual care concerns: No Anes - Eval Final PreProcedure Day of Procedure 10/15/20 07:25 Patient weight: normal Heart: regular rate and rhythm Lungs: clear to auscultation Airway: Mallampati scale class II Neurological: alert and oriented Last oral intake: >/= 8 hours ASA classification: II Emergent: no Anesthetic plan: proceed Anesthesia type and monitoring: general GIVS and standard monitoring Informed Consent: The patient's anesthetic plan and its attendant risks and benefits were discussed with the patient/family/POA. Questions were solicited and answers provided to the satisfaction of the patient/family/POA.
--- NOTE | 2020-10-15 07:48 | PM.HPGS ---
History of Present Illness History of Present Illness Consent: Risks, benefits, and alternatives have been discussed and questions answered. Patient agrees to proceed with procedure. Chief complaint: dysphagia Narrative: Sruthi Koch is a 35 year old female with dyspepsia and dysphagia to pills, on pepcid that is helping some Review of Systems Constitutional: Constitutional: Denies headache(s) and Denies weakness Eyes: Eyes: Denies blurry vision ENT: Reports Normal hearing present, Denies headache(s) and Denies neck pain Cardiovascular: Cardiovascular: Denies chest pain and Denies dyspnea Respiratory: Respiratory: Denies dyspnea Gastrointestinal: Gastrointestinal: Reports no additional gastrointestinal complaints Genitourinary: Genitourinary: Denies dysuria Musculoskeletal: Musculoskeletal: Denies neck pain Integumentary/Breasts: Skin/Breast: Denies dry skin Neurologic: Reports Normal hearing present, Denies headache(s) and Denies weakness Psychiatric: Psychiatric: Denies anxiety Endocrine: Endocrine: Denies change in body appearance Hematologic/Lymphatic: Hematologic/Lymphatic: Denies easy bleeding Allergic/Immunologic: Allergic/Immunologic: Denies urticaria PMF Past Medical History Medical History Asthma Hyperlipidemia Overweight (BMI 25.0-29.9) Family History Family History Sibling Asthma Father Family history of elevated blood lipids Mother Family history of cardiac disorder Social History Social History Smoking status: Never smoker Alcohol intake: never Substance use: never Substance use type: does not use Living arrangements: with family Gender identity (if verbalized by the patient): Female Spiritual care concerns: No Meds Home Medications and Allergies Home Medications Medication Instructions Recorded Confirmed Type Calcium 600 + D(3) 1 tablet PO DAILY 10/25/19 09/27/20 History famotidine 40 mg PO DAILY 09/27/20 09/27/20 History levothyroxine 75 mcg PO DAILY 09/27/20 09/27/20 History Allergies Allergy/AdvReac Type Severity Reaction Status Date / Time morphine Allergy Unknown LITTLE Verified 09/16/20 14:40 ITCHY BLISTER ON CHEST Vital Signs Vital Signs - 24 hr 03/02/21 06:38 Temperature 97.8 F Pulse Rate 74 Respiratory Rate 20 Blood Pressure 106/70 Pulse Oximetry 100 Exam Const: General: comfortable and no acute distress HENMT: General nose exam: Normal nares present Eyes: General: appearance normal, both eyes and all related structures Neck: Neck: no JVD Resp: Auscultation: clear to auscultation bilaterally Cardio: Rate: regular rate Rhythm: regular rhythm GI: Inspection: non-distended GI Palp: Yes Soft to palpation Skin: General skin exam: normal color Neuro: General: gait normal Speech: normal speech Extrem: General: normal to inspection Psych: Mental Status: mental status grossly normal Assessment and Plan Assessment and plan (1) Dyspepsia: Code(s): R10.13 - Epigastric pain Status: Acute Assessment and Plan: egd with biopsies, may need ppi (2) Dysphagia: Code(s): R13.10 - Dysphagia, unspecified Status: Acute
[2020-10-15 07:59] VITALS: BP 86/52; PULSE 76; RESP 17; O2SAT 97
[2020-10-15 08:09] VITALS: BP 97/61; PULSE 69; RESP 17; O2SAT 100
[2020-10-15 08:19] VITALS: BP 103/71; PULSE 64; RESP 19; O2SAT 100
== END 2020-10-15 08:27 | disposition home or self-care (01) ==
PROVIDERS: PCP Emergency Medicine; Visit Provider Internal Medicine Gastroenterology
PROC: 0DJ08ZZ Inspection of Upper Intestinal Tract, Via Natural or Artificial Opening Endoscopic (ICD-10-PCS; CPT 43235; principal; 2020-10-15 08:00)
DX: K30 Functional dyspepsia (principal); R13.10 Dysphagia, unspecified; J45.909 Unspecified asthma, uncomplicated; E78.5 Hyperlipidemia, unspecified
CPT/HCPCS: 43239; 88305; J2001; J2704; J7120

== ENCOUNTER → 2021-01-07 01:27 | Outpatient (CLI) | payer OTHER, SELFPAY ==
[2021-01-08 19:27] LABS: SARS-CoV-2 RNA PCR Negative
== END ==
PROVIDERS: PCP Emergency Medicine; Visit Provider Internal Medicine Gastroenterology
DX: Z01.812 Encounter for preprocedural laboratory examination (principal); Z20.822 Contact with and (suspected) exposure to COVID-19
CPT/HCPCS: C9803; U0003; U0005

== ENCOUNTER 2021-01-10 02:02 | Day surgery (SDC) | payer OTHER, SELFPAY ==
[2021-01-01 11:45] VITALS: BMI 30.5
[2021-01-10 07:46] VITALS: BP 108/78; PULSE 93; RESP 16; TEMP 36.1; O2SAT 93; BMI 30.3
[2021-01-10] MEDS: LACTATED RINGERS 1,000 ML 150 ML IV CONT (07:56)
--- NOTE | 2021-01-10 08:22 | WPDANESEPPF ---
Anes - Initial Pre Proc Eval Procedure: Operation Date: 01/10/21 09:00 Proposed Procedures p Colonoscopy - Isaac Smith MD Date/Time: 01/10/21 08:22 Surgeon: Isaac Smith MD Pre Op Diagnosis: abdominal tenderness, anal pain Patient Data Age: 35 Gender: F Height: 5 ft Weight: 70.4 kg Last Vital Signs Temp 97 F L 01/10/21 07:46 Pulse 93 01/10/21 07:46 Resp 16 01/10/21 07:46 BP 108/78 01/10/21 07:46 Pulse Ox 93 01/10/21 07:46 Allergies Allergy/AdvReac Type Severity Reaction Status Date / Time morphine Allergy Severe LITTLE Verified 01/10/21 07:44 ITCHY BLISTER ON CHEST Home Medications Medication Instructions Recorded Confirmed Type Calcium 600 + D(3) 1 tablet PO DAILY 10/25/19 01/01/21 History levothyroxine 75 mcg PO EVERY OTHER DAY 09/27/20 01/01/21 History simvastatin 10 mg tablet 10 mg PO DAILY 12/09/20 01/01/21 History omeprazole 20 mg capsule,delayed 20 mg PO DAILY #30 cap 12/11/20 01/01/21 Rx release Actalin Thyroid 2 tab-cap PO DAILY 01/01/21 01/01/21 History albuterol sulfate 2 puff INHALATION Q4-6H PRN 01/01/21 01/10/21 History levothyroxine [Euthyrox] 50 mcg PO EVERY OTHER DAY 01/01/21 01/01/21 History phentermine 15 mg PO DAILY 01/01/21 01/01/21 History Patient hx anesthesia problems: none Family hx anesthesia problems: none [facility] Past Medical History Medical History (Updated 12/09/20 @ 15:51 by JOHNNY Kearney) Asthma Dyspepsia Dysphagia Hyperlipidemia Overweight Overweight (BMI 25.0-29.9) Rectal pain Family History Family History Sibling Asthma Father Family history of elevated blood lipids Mother Family history of cardiac disorder Social History Social History Smoking status: Never smoker Alcohol intake: current Substance use: never Substance use type: does not use Living arrangements: with family Gender identity (if verbalized by the patient): Female Spiritual care concerns: No Anes - Eval Final PreProcedure Day of Procedure 01/10/21 08:22 Patient weight: obese Heart: regular rate and rhythm Lungs: clear to auscultation Airway: Mallampati scale class II Neurological: alert and oriented Last oral intake: >/= 8 hours ASA classification: III Emergent: no Anesthetic plan: proceed Anesthesia type and monitoring: general GIVS and standard monitoring Informed Consent: The patient's anesthetic plan and its attendant risks and benefits were discussed with the patient/family/POA. Questions were solicited and answers provided to the satisfaction of the patient/family/POA.
--- NOTE | 2021-01-10 08:25 | PM.HPGS ---
History of Present Illness History of Present Illness Consent: Risks, benefits, and alternatives have been discussed and questions answered. Patient agrees to proceed with procedure. Chief complaint: abdominal tenderness, anal pain Narrative: Sruthi Koch is a 35 year old female with intermittent rectal pain after defecation since her hysterectomy, never had colonoscopy Review of Systems Constitutional: Constitutional: Denies headache(s) and Denies weakness Eyes: Eyes: Denies blurry vision ENT: Reports Normal hearing present, Denies headache(s) and Denies neck pain Cardiovascular: Cardiovascular: Denies chest pain and Denies dyspnea Respiratory: Respiratory: Denies dyspnea Gastrointestinal: Gastrointestinal: Reports no additional gastrointestinal complaints Genitourinary: Genitourinary: Denies dysuria Musculoskeletal: Musculoskeletal: Denies neck pain Integumentary/Breasts: Skin/Breast: Denies dry skin Neurologic: Reports Normal hearing present, Denies headache(s) and Denies weakness Psychiatric: Psychiatric: Denies anxiety Endocrine: Endocrine: Denies change in body appearance Hematologic/Lymphatic: Hematologic/Lymphatic: Denies easy bleeding Allergic/Immunologic: Allergic/Immunologic: Denies urticaria [facility] Past Medical History Medical History (Updated 12/09/20 @ 15:51 by Gayla Pereira APN-C) Asthma Dyspepsia Dysphagia Hyperlipidemia Overweight Overweight (BMI 25.0-29.9) Rectal pain Family History Family History Sibling Asthma Father Family history of elevated blood lipids Mother Family history of cardiac disorder Social History Social History Smoking status: Never smoker Alcohol intake: current Substance use: never Substance use type: does not use Living arrangements: with family Gender identity (if verbalized by the patient): Female Spiritual care concerns: No Meds Home Medications and Allergies Home Medications Medication Instructions Recorded Confirmed Type Calcium 600 + D(3) 1 tablet PO DAILY 10/25/19 01/01/21 History levothyroxine 75 mcg PO EVERY OTHER DAY 09/27/20 01/01/21 History simvastatin 10 mg tablet 10 mg PO DAILY 12/09/20 01/01/21 History omeprazole 20 mg capsule,delayed 20 mg PO DAILY #30 cap 12/11/20 01/01/21 Rx release Actalin Thyroid 2 tab-cap PO DAILY 01/01/21 01/01/21 History albuterol sulfate 2 puff INHALATION Q4-6H PRN 01/01/21 01/10/21 History levothyroxine [Euthyrox] 50 mcg PO EVERY OTHER DAY 01/01/21 01/01/21 History phentermine 15 mg PO DAILY 01/01/21 01/01/21 History Allergies Allergy/AdvReac Type Severity Reaction Status Date / Time morphine Allergy Severe LITTLE Verified 01/10/21 07:44 ITCHY BLISTER ON CHEST Vital Signs Vital Signs - 24 hr 01/10/21 07:46 Temperature 97 F L Pulse Rate 93 Respiratory Rate 16 Blood Pressure 108/78 Pulse Oximetry 93 Exam Const: General: comfortable and no acute distress HENMT: General nose exam: Normal nares present Eyes: General: appearance normal, both eyes and all related structures Neck: Neck: no JVD Resp: Auscultation: clear to auscultation bilaterally Cardio: Rate: regular rate Rhythm: regular rhythm GI: Inspection: non-distended GI Palp: Yes Soft to palpation Skin: General skin exam: normal color Neuro: General: gait normal Speech: normal speech Extrem: General: normal to inspection Psych: Mental Status: mental status grossly normal Assessment and Plan Assessment and plan (1) Rectal pain: Code(s): K62.89 - Other specified diseases of anus and rectum Status: Acute Assessment and Plan: colonoscopy
[2021-01-10 08:41] VITALS: BP 104/64; PULSE 74; RESP 22; O2SAT 100
[2021-01-10 08:51] VITALS: BP 103/62; PULSE 72; RESP 20; O2SAT 100
[2021-01-10 09:01] VITALS: BP 107/69; PULSE 80; RESP 18; O2SAT 99
== END 2021-01-10 09:22 | disposition home or self-care (01) ==
PROVIDERS: PCP Emergency Medicine; Visit Provider Internal Medicine Gastroenterology
PROC: 0DJD8ZZ Inspection of Lower Intestinal Tract, Via Natural or Artificial Opening Endoscopic (ICD-10-PCS; CPT 45378; principal; 2021-01-10 09:00)
DX: R10.30 Lower abdominal pain, unspecified (principal); K62.89 Other specified diseases of anus and rectum; K64.8 Other hemorrhoids; J45.909 Unspecified asthma, uncomplicated; R10.13 Epigastric pain; R13.10 Dysphagia, unspecified; E78.5 Hyperlipidemia, unspecified; E03.9 Hypothyroidism, unspecified; Z79.51 Long term (current) use of inhaled steroids; E66.9 Obesity, unspecified; Z68.30 Body mass index [BMI] 30.0-30.9, adult
CPT/HCPCS: 45378; J2001; J2704; J7120

== ENCOUNTER 2021-04-15 09:45 | Outpatient (RCR) | payer OTHER, SELFPAY ==
--- NOTE | 2021-03-04 16:53 | PTOPEVAL ---
INITIAL PHYSICAL THERAPY EVALUATION and PLAN OF CARE Thank you for referring Sruthi Koch to [facility].? Sruthi is scheduled to be seen for physical therapy? 1x/week for 6 weeks. Please review, sign, date and return this plan of care JONATHON. I agree with and certify that the following plan of care is medically necessary. Referring Physician Date Admitting Provider: Attending Provider: April Denson MD Referring Provider: *PT Outpatient Evaluation Start: 03/04/21 08:19 Freq: Status: Active Protocol: Document 03/04/21 08:20 SHELDON (Rec: 03/04/21 09:11 SHELDON [id number]) Therapy Assessment Status Assessment Status Assessment Status Evaluation Outpatient Past Medical History Past Medical History Source of Past Medical History Recalled from Previous Visit, Confirmed with Patient/Family Neurological History Hx Neurological Disorders No Significant History Cardiovascular History Hx Hypercholesterolemia Yes Respiratory History Hx Asthma Yes Gastrointestinal History Hx Gastroesophageal Reflux Disease Yes Hx Gastrointestinal Bleed Yes Genitourinary History Hx Bladder Surgery Yes: attached to ABD. WALL WITH UTERUS DUE TO C-SECTIONS 2019 Musculoskeletal History Hx Musculoskeletal Disorders No Significant History Hematological History Hx Anemia Yes: HISTORY OF Endocrine History Hx Hypothyroidism Yes: JOHAN HEENT History Hx Sinus Problems Yes: sinus surgery-2017 Hx Other HEENT Disorders Yes: seasonal allegies Integumentary History Hx Shingles Yes Reproductive History Hx Section Yes: X 2, 2 SURGERY FOR SCAR TISSUE REMOVAL AFTER each C section Hx Hysterectomy Yes: ADENOMYOSIS, 08/2020 Hx Tubal Ligation Yes Psychosocial History Hx Psychiatric Disorders No Significant History Pain History History of Any Previous or Ongoing No Significant History Instance of Pain Anesthesia History Hx Anesthesia Reactions No Significant History Other History Hx Other Medical Conditions Yes: POSITIVE COVID TEST X 2 in January 2020 Evaluation Information Problem Diagnosis pelvic and perineal pian, dyspareunia Onset ~ 4 years - worsening Subjective Information Srtuhi reports beginning to Query Text:As Reported By Patient/ have pelvic pain after 1st C Family section. This continued - worsened again after 2nd C section. Underwent surgery
--- NOTE | 2021-04-15 11:53 | PTOPEVAL ---
PHYSICAL THERAPY DISCHARGE SUMMARY Thank you for referring Sruthi Koch to [facility].? Sruthi has been seen x 6 visits in PT. She has met most goals set and is independent with her HEP. She is ready for d/c from PT to HEP. I agree with Sruthi's discharge from PT. Referring Physician Date Admitting Provider: Attending Provider: April Denson MD Referring Provider: Therapy Assessment Status Assessment Status Assessment Status Discharge Evaluation Information Problem Diagnosis pelvic and perineal pian, dyspareunia Subjective Information Sruthi reports having some hip Query Text:As Reported By Patient/ pain with moving rocks, Family shoveling, etc yesterday. However on Wednesday - she had increased bladder and tailbone pain - which can come and go. She did perform increase sitting on Wednesday with riding in car - but no increase in activity Wednesday or Wednesday. Flanagan - some L side discomfort - but otherwise has been ok. Pain Assessment Timing of Pain Assessment Timing of Pain Assessment Assessment Pain Scale Pain Scale Used Numeric (1 - 10) Self Report Pain Assessment Lower Back Reported Pain Level 0 Pain Description Dull,Pressure Lowest Pain Intensity 0 Greatest Pain Intensity 6 Pain Score Pain Score 0: Self Report Cervical and Lumbar ROM Lumbar ROM Lumbar ROM WNL Normal Lumbar Segmental Motion Yes Lumbar Comments negative standing flexion test , tenderness at SIJs with trunk AROM - but symmetrical motion Palpation Assessment Palpation Palpation P-A mob - to sacrum - tenderness at ILAs - bilat, L5 tenderness along coccyx - external palpation Pelvic Health Evaluation Pelvic Floor Assessment Permission Received for External/ Yes Internal Perineal Exam External Perineal Body Palpation no tenderness present Internal Perineal Body Palpation mild tenderness at introitus, internally - mild L sided tissue tension but no tenderness laterally, mild discomfort at L side of center near coccygeal origin - no tenderness on R side. Some
== END 2021-04-15 15:53 | disposition home or self-care (01) ==
LOC: ANHPT 09:45
PROVIDERS: PCP Emergency Medicine; Visit Provider Obstetrics & Gynecology
DX: R10.2 Pelvic and perineal pain (principal)
CPT/HCPCS: 97014; 97110; 97140; 97162; G0283

== ENCOUNTER 2021-04-20 08:57 | Emergency (ER) | payer OTHER, SELFPAY ==
[2021-04-20 09:04] VITALS: BP 96/70; PULSE 78; RESP 16; TEMP 36.2; O2SAT 100
--- NOTE | 2021-04-20 09:17 | ED.EAR ---
HPI - Ear Problem General Chief complaint: Ear Stated complaint: Vertigo,Sore Throat Time Seen by Provider: 04/20/21 09:18 Source: patient and RN notes reviewed Mode of arrival: ambulatory Limitations: no limitations History of Present Illness HPI Narrative: 36 year old female who presents to [facility] care with complaints of post nasal drainage, left ear feels itchy, some throat irritation for the past 3 days. Patient states that she has history of vertigo and noticed episode once when she bent over to garbage pick up man her child today, denies any syncope. Patient denies any fevers, chills or sweats, denies any body aches. MD Complaint: other (tickly sensation left ear) Location: left ear Discharge from ear: Reports no Associated symptoms ear: rhinorrhea (PND and episode of vertigo) Treatment prior to arrival: other (Mucinex D) Related Data Home Medications Medication Instructions Recorded Confirmed Calcium 600 + D(3) 1 tablet PO DAILY 10/25/19 04/20/21 levothyroxine 75 mcg PO EVERY OTHER DAY 09/27/20 04/20/21 simvastatin 10 mg tablet 10 mg PO DAILY 12/09/20 04/20/21 Actalin Thyroid 2 tab-cap PO DAILY 01/01/21 04/20/21 albuterol sulfate 2 puff INHALATION Q4-6H PRN 01/01/21 04/20/21 cyanocobalamin (vitamin B-12) 1,000 mcg IM DAILY 04/20/21 04/20/21 levothyroxine 50 mcg PO EVERY OTHER DAY 04/20/21 04/20/21 phentermine 30 mg PO DAILY 04/20/21 04/20/21 Allergies Allergy/AdvReac Type Severity Reaction Status Date / Time morphine Allergy Severe LITTLE Verified 01/27/21 10:09 ITCHY BLISTER ON CHEST Review of Systems Review of Systems: CONSTITUTIONAL: Denies fever, chills, or sweats. EYES: Denies visual changes, redness, or discharge. ENT: Positive for post nasal rhinorrhea, congestion, mild sore throat, left ear felt a twinge of pain CARDIOVASCULAR: Denies chest pain, palpitations, or edema. RESPIRATORY: Denies cough or dyspnea. GASTROINTESTINAL: Denies abdominal pain, nausea, vomiting, or diarrhea. GENITOURINARY: Denies dysuria or hematuria. SKIN: Denies rash or itching. MUSCULOSKELETAL: Denies back pain, joint pain, or myalgia. NEUROLOGIC: Denies headache, numbness, or weakness.episode of vertigo when she bent over today, no syncope. PSYCHIATRIC: Denies anxiety or depression. All systems reviewed & are unremarkable except as noted in HPI and below PMFSH Past Medical History Medical History (Updated 04/24/21 @ 21:32 by Meghna Doran NP) Asthma Dyspepsia Dysphagia GERD (gastroesophageal reflux disease) Hyperlipidemia Overweight Overweight (BMI 25.0-29.9) Rectal pain Seasonal allergies Surgical History Surgical History (Updated 04/20/21 @ 09:37 by Meghna Doran NP) H/O sinus surgery H/O: hysterectomy Previous section Family History Family History (Updated 04/20/21 @ 09:38 by Meghna Doran NP) Sibling Asthma Father Family history of elevated blood lipids Mother Family history of cardiac disorder Grandparent Diabetes mellitus Family history of cardiac disorder Social History Social History Smoking status: Never smoker Alcohol intake: current Substance use: never Substance use type: does not use Gender identity (if verbalized by the patient): Female Spiritual care concerns: No Comments At time of signature, agree with nursing past medical, surgical, social and family history. There is no relevant family history pertinent to the presenting complaint Exam Narrative: GENERAL: Well-appearing, well-nourished, and in no acute distress. HEAD: Normocephalic, atraumatic. EYES: PERRLA and EOMI. ENT: Nares red, post nasal drainage, no epistaxis. Mucous membranes moist.Right TM normal with good light reflex, Left TM dull with some bulging noted. Throat normal with no lesions exudate or any tonsil swelling,post nasal drainage noted. NECK: Supple. no lymphadenopathy CHEST: Clear to auscultation. No respiratory dis
== END 2021-04-20 09:46 | disposition home or self-care (01) ==
PROVIDERS: Emergency Provider Registered Nurse; PCP Emergency Medicine
DX: J06.9 Acute upper respiratory infection, unspecified (principal); H69.92 Unspecified Eustachian tube disorder, left ear; J45.909 Unspecified asthma, uncomplicated; K21.9 Gastro-esophageal reflux disease without esophagitis; E78.5 Hyperlipidemia, unspecified
CPT/HCPCS: 99211; G0463

== ENCOUNTER 2021-06-16 12:53 | Outpatient (RCR) | payer OTHER, SELFPAY ==
--- NOTE | 2021-06-16 14:23 | PTOPEVAL ---
PHYSICAL THERAPY EVALUATION Thank you for referring Sruthi Koch to [facility].? Sruthi was evaluated for the dx of BPPV. The patient is scheduled to be seen for therapy? prn for up to 1 month to monitor symptoms and reassess if symptoms return. Please review, sign, date and return this plan of care JONATHON. I agree with and certify that the following plan of care is medically necessary. Referring Physician Date Attending Provider: Kapil Barahona MD *PT Outpatient Evaluation Start: 06/16/21 13:03 Freq: Status: Active Protocol: Document 06/16/21 13:04 MLV (Rec: 06/16/21 14:08 MLV [id number]) Therapy Assessment Status Assessment Status Assessment Status Evaluation Evaluation Information Problem Diagnosis BPPV/ vertigo Onset 1 year ago Cause unknown Additional Evaluation Detail The patient reports having dizziness spells about 1-2 x a month and the intensity of the symptoms are getting worse . The pt reports having sinus issues that may or may not have dizziness with it. The patient now has symptoms with bending over or rolling over in bed. 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 The patient states the symptoms affect her childcare most of all activities. Pain Assessment Timing of Pain Assessment Timing of Pain Assessment Assessment Self Report Self Report Pain Level 0 Pain Score Pain Score 0: Self Report Cervical and Lumbar ROM Cervical ROM Reason Not Measured WNL/Left,WNL/Right Upper Extremity Range of Motion General Upper Extremity Range of Motion Reason Not Measured WNL/Left,WNL/Right Upper Extremity Muscle Strength Testing General Upper Extremity Strength Reason Not Measured WNL/Left,WNL/Right Gait Assessment Gait Pattern Assessment Gait Pattern No Deviations/Normal Other Gait Observations pt without symptoms with high level head motions/eye motions with walking tasks. Vestibular Evaluation Vestibular Medical Information Past Vestibular History Headaches,Medication Changes, Sinus/Allergy Issues Medical History Comments simvastatin started 1.5 yrs ago; levothiroxin for thyroid issues (changed regularly) Recent Symptoms Headaches,
--- NOTE | 2021-06-23 13:55 | PCPTNOTE ---
PT called pt to check on symptoms and use of allergy med option. The patient reports starting the allergy pill, the patient has had no dizziness since last PT visit and she continues to do her exercise as instructed. Plan to call pt again in one week and assure the patient is still dizzy free.
--- NOTE | 2021-06-30 13:06 | PCPTNOTE ---
Attempted to contact patient regarding status of dizziness. Pt not available-left message.
--- NOTE | 2021-07-07 11:14 | PCPTNOTE ---
The patient reports remaining symptom free and feels no need for further updates/therapy. plan to dc PT.
--- NOTE | 2021-07-07 11:15 | PCPTNOTE ---
PHYSICAL THERAPY DISCHARGE Attending Provider: Kapil Barahona MD Patient:Sruthi Koch Date of :1985 Patient has not returned for any further treatments since 06/16/2021, patient has been consistently symptom-free for 3 weeks. She will be discharged at this time. Patient?s initial visit was on 06/16/2021 13:00 and she had a total of 1 visit and 3 follow up calls. The goals have been met. Thank you for referring this patient to [facility]. Please review, sign, date and return this discharge summary JONATHON. I have been updated about the patient's current status and I agree with discharge from the above service at this time. Referring Physician Date
== END 2021-07-08 09:20 | disposition home or self-care (01) ==
LOC: ANHPT 12:53
PROVIDERS: PCP Emergency Medicine; Visit Provider Otolaryngology
DX: H81.10 Benign paroxysmal vertigo, unspecified ear (principal)
CPT/HCPCS: 97110; 97162

== ENCOUNTER 2021-08-04 07:09 | Outpatient (RCR) | payer OTHER, SELFPAY | END 2021-11-02 23:59 | disposition home or self-care (01) | LOC: ANHVASCINF 07:09 | PROVIDERS: PCP Emergency Medicine; Visit Provider Internal Medicine Endocrinology, Diabetes & Metabolism | DX: R94.7 Abnormal results of other endocrine function studies (principal) | CPT/HCPCS: 36415; 82533; 96372; J0834 ==

== ENCOUNTER 2021-09-26 09:26 | Emergency (ER) | payer OTHER, SELFPAY ==
[2021-09-26 09:41] VITALS: BP 116/83; PULSE 77; RESP 16; TEMP 36.6; O2SAT 99
[2021-09-26 09:42] VITALS: BP 116/83; PULSE 77; RESP 16; TEMP 36.6; O2SAT 99
--- NOTE | 2021-09-26 09:56 | ED.DIZZY ---
HPI - Dizziness General Chief Complaint: Dizziness Stated Complaint: Vertigo Time Seen by Provider: 09/26/21 09:56 Source: patient, RN notes reviewed and old records reviewed Mode of arrival: ambulatory Limitations: no limitations History of Present Illness HPI Narrative: 36-year-old female with a history of vertigo presents to the [facility] with concerns for her ear. Patient has been through vestibular therapy for her vertigo. States 2 days ago her 2-year-old head butted her and she started having right ear pain. Denies any new blurry vision or change in vision. States it feels like her normal vertigo but just a little worse. Is here to actually just have her ears looked at MD elicited complaint: dizziness Related Data Home Medications Medication Instructions Recorded Confirmed Calcium 600 + D(3) 1 tablet PO DAILY 10/25/19 04/20/21 levothyroxine 75 mcg PO EVERY OTHER DAY 09/27/20 04/20/21 simvastatin 10 mg tablet 10 mg PO DAILY 12/09/20 04/20/21 Actalin Thyroid 2 tab-cap PO DAILY 01/01/21 04/20/21 albuterol sulfate 2 puff INHALATION Q4-6H PRN 01/01/21 04/20/21 Apple Cider Vinegar 09/26/21 Seaweed 09/26/21 Allergies Allergy/AdvReac Type Severity Reaction Status Date / Time morphine Allergy Severe LITTLE Verified 05/27/21 09:48 ITCHY BLISTER ON CHEST Review of Systems Review of Systems: All systems reviewed & are unremarkable except as noted in HPI and below Constitutional: Constitutional: Reports no additional constitutional complaints, Denies chills and Denies fever(s) Eyes: Eyes: Reports no additional eye complaints ENT: Reports as per HPI Comments: Right ear pain Cardiovascular: Cardiovascular: Reports no additional cardiovascular complaints Respiratory: Respiratory: Reports no additional respiratory complaints, Denies cough and Denies dyspnea Gastrointestinal: Gastrointestinal: Reports no additional gastrointestinal complaints, Denies abdominal pain, Denies nausea and Denies vomiting Musculoskeletal: Musculoskeletal: Reports no additional musculoskeletal complaints Integumentary/Breasts: Skin/Breast: Reports system reviewed and no additional complaints, except as docu Neurologic: Reports as per HPI and Reports vertigo Psychiatric: Psychiatric: Reports no additional psychiatric complaints Allergic/Immunologic: Allergic/Immunologic: Reports no additional allergic/immunologic complaints PMFSH Past Medical History Medical History Asthma Dyspepsia Dysphagia GERD (gastroesophageal reflux disease) Hyperlipidemia Overweight Overweight (BMI 25.0-29.9) Rectal pain Seasonal allergies Surgical History Surgical History H/O sinus surgery H/O: hysterectomy Previous section Family History Family History Sibling Asthma Father Family history of elevated blood lipids Mother Family history of cardiac disorder Grandparent Diabetes mellitus Family history of cardiac disorder Social History Social History Smoking status: Never smoker Alcohol intake: current Substance use: never Substance use type: does not use Gender identity (if verbalized by the patient): Female Spiritual care concerns: No Comments At the time of my signature, I reviewed and agree with the nursing past medical, surgical, social, and family history. There is no relevant family history pertinent to the patient complaint. Exam Const: General: healthy appearing, no acute distress and alert Nutritional Appearance: well nourished Orientation/consciousness: patient oriented x3 Limitations: no limitations HENMT: Head: normal to inspection, no contusions and no hematomas Ears: external ears normal, EAC's normal, external ear abnormal and TM abnormal bulging on the right and with fluid
== END 2021-09-26 10:18 | disposition home or self-care (01) ==
PROVIDERS: Emergency Provider Nurse Practitioner; PCP Emergency Medicine
DX: H81.10 Benign paroxysmal vertigo, unspecified ear (principal); H65.01 Acute serous otitis media, right ear; J45.909 Unspecified asthma, uncomplicated; K21.9 Gastro-esophageal reflux disease without esophagitis; E78.5 Hyperlipidemia, unspecified
CPT/HCPCS: 99213; G0463

== ENCOUNTER 2021-10-28 09:19 | Emergency (ER) | payer OTHER, SELFPAY ==
--- NOTE | ~2021-10-28 | XR_ITS ---
EXAMINATION: XR chest 2V DATE: 10/28/2021 09:58 INDICATION: Left-sided chest pain and shortness of breath TECHNIQUE: PA and lateral views of the chest were obtained. COMPARISON: Chest radiograph dated 09/13/2020 FINDINGS: The lungs remain clear with no focal airspace opacities, pulmonary edema, pleural effusion or pneumot horax. The cardiomediastinal silhouette is normal. Visualized bones and soft tissues are unremarkable . IMPRESSION: 1. Normal chest radiograph. Reviewed, dictated and finalized at location A. IMPRESSION: 1. Normal chest radiograph.
--- NOTE | 2021-10-28 09:21 | ECG_ITS ---
Measurements Intervals [place] Rate: 74 P: 59 TN: 143 QRS: 59 QRSD: 92 T: 39 QT: 373 QTc: 416 Interpretive Statements SINUS RHYTHM COMPARED TO ECG 09/13/2020 21:09:49 NO SIGNIFICANT CHANGES Electronically Signed On 10-28-2021 18:33:44 CDT by Kianna Blake M.D.
[2021-10-28 09:27] VITALS: BP 117/74; PULSE 82; RESP 22; TEMP 36.4; O2SAT 100
[2021-10-28 09:38] VITALS: BP 107/72; PULSE 65
[2021-10-28 09:40] VITALS: BP 115/71; PULSE 71
[2021-10-28 09:41] VITALS: BP 120/70; PULSE 71
[2021-10-28 09:42] LABS: Basophils Percent Auto 0.6 % (0.2-1.2); Eosinophils Absolute Auto 0.2 K/mm3 (0-0.3); Eosinophils Percent Auto 2.7 % (0-4.4); Hematocrit 40.7 % (37.0-47.0); Lymphocytes Absolute Auto 2.42 K/mm3 (0.9-3.2); Lymphocytes Percent Auto 36.9 % (18.3-44.2); Mean Corpuscular HGB Conc 31.9 g/dl (32-36); Mean Corpuscular Hemoglobin 28.1 pg (26-34); Mean Corpuscular Volume 88.1 fl (80-100); Monocytes Absolute Auto 0.4 K/mm3 (0.1-0.6); Monocytes Percent Auto 6.3 % (2.6-8.5); Neutrophils Absolute Auto 3.5 K/mm3 (1.3-6.7); Neutrophils Percent Auto 53.5 % (45.5-73.1); Platelet Count Result 275 k/mm3 (150-375); Red Blood Count 4.62 M/mm3 (4.2-5.4); Red Cell Distribution Width 13.2 % (11.5-14.5); White Blood Count 6.6 K/mm3 (4.5-10.0)
[2021-10-28 09:43] VITALS: BP 120/70; PULSE 74; RESP 28; O2SAT 100
[2021-10-28 09:46] LABS: Alanine Aminotransferase 14 U/L (4-35); Albumin Level 4.6 g/dL (3.5-5.1); Alkaline Phosphatase 38 U/L (38-126); Anion Gap 8 mmol/L (8-16); Aspartate Amino Transferase 27 U/L (14-36); Bilirubin,Total 0.6 mg/dL (0.2-1.3); Blood Urea Nitrogen 12 mg/dL (7-17); Calcium 8.8 mg/dL (8.4-10.2); Carbon Dioxide 26 mmol/L (22-30); Chloride 104 mmol/L (98-107); Estimated CRCL calculation 80 ml/min; Estimated Glomerular Filt Rate > 60; Glucose 90 mg/dL (65-110); Lipase 83 U/L (23-300); Potassium 3.8 mmol/L (3.4-5.0); Sodium 138 mmol/L (137-145)
[2021-10-28] MEDS: ASPIRIN 81 MG CHEWABLE TABLET 324 MG PO (09:50)
[2021-10-28 09:57] LABS: Troponin I < 0.012 ng/mL (0.000-0.034)
[2021-10-28 10:05] LABS: Prothrombin Time 13.1 Seconds (11.1-14.7)
[2021-10-28 10:06] LABS: Partial Thromboplastin Time 29.8 SECONDS (22.3-36.8)
--- NOTE | 2021-10-28 10:26 | ED.CHESTPAIN ---
HPI - Chest Pain General Chief Complaint: Chest Pain Stated Complaint: chest pain Time Seen by Provider: 10/28/21 10:10 Source: patient Mode of arrival: ambulatory Limitations: no limitations History of Present Illness HPI narrative: Patient is 36 years old white female presents with intermittent spasm-like pain at the left lower ribs started last night usually last for few seconds at rest. Woke up this morning with constant pain at that area, resolved on arrival to the emergency room. Patient denies radiation of pain, shortness of breath, fever, chills, nausea, vomiting, back pain, aggravating or relieving factors. History of hyperlipidemia and Lynda. Patient does not smoke or drink or uses drugs. No family history of coronary artery disease. Patient works from home Related Data Home Medications Medication Instructions Recorded Confirmed Calcium 600 + D(3) 1 tablet PO DAILY 10/25/19 09/30/21 levothyroxine 75 mcg PO EVERY OTHER DAY 09/27/20 09/30/21 simvastatin 10 mg tablet 10 mg PO DAILY 12/09/20 09/30/21 Actalin Thyroid 2 tab-cap PO DAILY 01/01/21 09/30/21 albuterol sulfate 2 puff INHALATION Q4-6H PRN 01/01/21 09/30/21 Apple Cider Vinegar 09/26/21 09/30/21 Seaweed 09/26/21 09/30/21 Allergies Allergy/AdvReac Type Severity Reaction Status Date / Time morphine Allergy Severe LITTLE Verified 09/30/21 12:58 ITCHY BLISTER ON CHEST Review of Systems Review of Systems: CONSTITUTIONAL: Denies fever, chills, or sweats. EYES: Denies visual changes, redness, or discharge. ENT: Denies rhinorrhea, congestion, sore throat, or otalgia. CARDIOVASCULAR: Denies chest pain, palpitations, or edema. RESPIRATORY: Denies cough or dyspnea. GASTROINTESTINAL: Denies abdominal pain, nausea, vomiting, or diarrhea. GENITOURINARY: Denies dysuria or hematuria. SKIN: Denies rash or itching. MUSCULOSKELETAL: Denies back pain, joint pain, or myalgia. NEUROLOGIC: Denies headache, numbness, or weakness. PSYCHIATRIC: Denies anxiety or depression. [facility] Past Medical History Medical History Asthma Dyspepsia Dysphagia GERD (gastroesophageal reflux disease) Hyperlipidemia Overweight Overweight (BMI 25.0-29.9) Rectal pain Seasonal allergies Surgical History Surgical History H/O sinus surgery H/O: hysterectomy Previous section Family History Family History Sibling Asthma Father Family history of elevated blood lipids Mother Family history of cardiac disorder Grandparent Diabetes mellitus Family history of cardiac disorder Social History Social History Smoking status: Never smoker Alcohol intake: current Substance use: never Substance use type: does not use Gender identity (if verbalized by the patient): Female Spiritual care concerns: No Exam Narrative: General appearance: Well-developed, well-nourished Skin: Normal color Head: Normocephalic, nontraumatic Eyes: Clear conjunctiva ENT: Oropharynx normal, ears normal, nose normal Neck: Supple, nontender Chest and respiratory: Airway patent, no respiratory distress, no accessory muscle use Heart: Regular rate/rhythm Abdomen: Soft, nontender, no organomegaly, quiet bowel sounds Vascular: Normal peripheral pulses, normal capillary refill. Musculoskeletal: Normal range of motion, nontender back Neurologic: Alert and oriented ?3, INTERNAL CONTROL ANALYST is normal as tested, no gross motor deficit Course Course Emergency Course: Stable, Work-up did not show any significant
[2021-10-28 10:43] VITALS: BP 126/78; PULSE 67
== END 2021-10-28 10:44 | disposition home or self-care (01) ==
PROVIDERS: Emergency Provider Emergency Medicine; PCP Emergency Medicine
DX: R07.81 Pleurodynia (principal); J45.909 Unspecified asthma, uncomplicated; K21.9 Gastro-esophageal reflux disease without esophagitis; E78.5 Hyperlipidemia, unspecified; E06.3 Autoimmune thyroiditis; E66.3 Overweight; Z68.27 Body mass index [BMI] 27.0-27.9, adult
CPT/HCPCS: 36415; 71046; 80053; 83690; 84484; 85025; 85610; 85730; 93005; 99284; A9270

== ENCOUNTER 2021-10-30 14:00 | Outpatient (RCR) | payer OTHER, SELFPAY ==
--- NOTE | 2021-10-21 15:20 | PTOPEVAL ---
Thank you for referring Sruthi Koch to [facility].? The patient is scheduled to be seen for therapy? 1 x/week for 4 weeks. Please review, sign, date and return this plan of care JONATHON. I agree with and certify that the following plan of care is medically necessary. Referring Physician Date Attending Provider: Kapil Barahona MD Diagnosis BPPV Onset 10/07 Cause COVID, possible concussion Additional Evaluation Detail History of Vertigo for 2 yrs with unknown cause or trigger. She has received previous therapy Subjective Information Reports after her son head Query Text:As Reported By Patient/ butted her she had nausea, Family dizziness and disorientation. She had spinning regardless of the position. All neck motions and positions increased the symptoms. Every time she has flare-up her symptoms increase with intensity. She felt brain fog with this bout with decreased equilibrium. Reports her symptoms improve 1 wk ago. Pain Assessment Timing of Pain Assessment Timing of Pain Assessment Assessment Self Report Self Report Pain Level 0 Pain Score Pain Score 0: Self Report Cervical and Lumbar ROM Cervical ROM Cervical Flexion (0-60) 50:Active in Degrees Cervical Extension (0-70) 55:Active in Degrees Cervical Lateral Flexion Right (0-50) 45:Active in Degrees Cervical Lateral Flexion Left (0-50) 45:Active in Degrees Palpation Assessment Palpation Palpation muscle tightness of trap muscles, levator and scalene muscles Special Test-Spine Cervical Spine Special Tests Foraminal Compression (Spurling) Negative Right,Negative Left Vestibular Evaluation Vestibular Medical Information Past Vestibular History Head Injury,Headaches,Sinus/ Allergy Issues Recent Symptoms Difficulty Concentrating, Headaches Other Symptoms Comments fog brain Onset of Symptoms 2 yrs ago, Sep 2021 Recurrence and Prior Episodes of Vertigo every 2-3 months Previous Medical Care/Testing Previous PT Symptoms Increase Bend Forward,Lie Down (sit to supine),Look Up,Looking Side to Side,Quick Head Turns, Rolling in Bed Types of
--- NOTE | 2021-11-28 07:47 | PCPTNOTE ---
Admitting Provider: Attending Provider: Kapil Barahona MD Patient:Sruthi Koch Date of :1985 Physical Therapy Discharge Summary Patient has not returned for any further treatments since 10/30/2021, therefore she will be discharged at this time. Patient?s initial visit was on 10/21/2021 she had a total of 1 visits. The goals have been not met. Thank you for referring this patient to [facility]. Please review, sign, date and return this discharge summary JONATHON. I have been updated about the patient's current status and I agree with discharge from the above service at this time. Referring Physician Date
== END 2021-11-28 08:55 | disposition home or self-care (01) ==
LOC: ANHPT 14:00
PROVIDERS: PCP Emergency Medicine; Visit Provider Otolaryngology
DX: H81.10 Benign paroxysmal vertigo, unspecified ear (principal)
CPT/HCPCS: 97110; 97112; 97162

== ENCOUNTER 2021-12-29 05:57 | Outpatient (CLI) | payer OTHER, SELFPAY | END 2021-12-29 05:58 | disposition home or self-care (01) | LOC: ANHAUDIO 05:58 | PROVIDERS: PCP Emergency Medicine; Visit Provider Otolaryngology | DX: H81.10 Benign paroxysmal vertigo, unspecified ear (principal) | CPT/HCPCS: 92537; 92540; 92546; 92557; 92567 ==

== ENCOUNTER 2022-01-26 10:11 | Outpatient (CLI) | payer OTHER, SELFPAY ==
--- NOTE | ~2022-01-26 | US_ITS ---
EXAMINATION: US thyroid DATE: 01/26/2022 11:33 INDICATION: Nontoxic goiter. TECHNIQUE: Multiple ultrasound images of the thyroid were obtained. COMPARISON: Ultrasound 02/01/2019 FINDINGS: The right thyroid lobe measures 4.6 x 1.7 x 1.3 cm. The left thyroid lobe measures 3.3 x 1.3 x 1.4 c m. There is normal echotexture and echogenicity throughout the thyroid gland. No discrete nodules id entified. Normal vascular flow is present. IMPRESSION: 1. Normal thyroid. Reviewed, dictated and finalized at location B. IMPRESSION: 1. Normal thyroid.
== END 2022-01-26 10:12 | disposition home or self-care (01) ==
LOC: ANHIMG 10:15
PROVIDERS: PCP Emergency Medicine; Visit Provider Internal Medicine Endocrinology, Diabetes & Metabolism
DX: E04.9 Nontoxic goiter, unspecified (principal)
CPT/HCPCS: 76536

== ENCOUNTER 2022-06-24 12:24 | Outpatient (CLI) | payer OTHER, SELFPAY ==
--- NOTE | ~2022-06-24 | MMUS_ITS ---
EXAMINATION: MM diagnostic lily BI w marlene, US breast BI complete HISTORY: Bilateral breast lumps TECHNIQUE: ML, MLO and CC 3-D tomosynthesis images of both breasts were performed and synthetic 2-D i mages were generated. CAD analysis was submitted and interpreted. High resolution complete bilateral breast ultrasound including all 4 quadrants and subareolar areas was performed. COMPARISON: 02/05/2020 complete right breast ultrasound examination BREAST PARENCHYMAL COMPOSITION: The breasts are extremely dense, which lowers the sensitivity of mamm ography. FINDINGS: MAMMOGRAPHIC FINDINGS: No suspicious mass, architectural distortion, malignant calcification, skin thickening or retraction of either breast is detected. ULTRASOUND: There are scattered right subcentimeter cysts and occasional left breast cyst measuring up to 11 mm m aximal dimension. No suspicious mass or shadowing is detected in either breast. IMPRESSION: 1. Benign findings 2. Routine annual mammographic screening is recommended. BI-RADS Category 2: Benign finding(s). Reviewed, dictated and finalized at location A. RWRITING SPECIALIST IMPRESSION: 1. Benign findings 2. Routine annual mammographic screening is recommended. BI-RADS Category 2: Benign finding(s).
== END 2022-06-24 12:25 | disposition home or self-care (01) ==
PROVIDERS: PCP Emergency Medicine; Visit Provider Nurse Practitioner
DX: N63.0 Unspecified lump in unspecified breast (principal)
CPT/HCPCS: 76641; 77062; 77066; G0279

== ENCOUNTER 2022-08-05 09:29 | Emergency (ER) | payer OTHER, SELFPAY ==
[2022-08-05 09:40] VITALS: BP 103/71; PULSE 86; RESP 16; TEMP 36.5; O2SAT 100
--- NOTE | 2022-08-05 10:05 | ED.URI ---
HPI - URI/Sore Throat General Chief Complaint: Upper Respiratory Infection Stated Complaint: fever/congestion/sore throat Time Seen by Provider: 08/05/22 09:50 Source: patient Mode of arrival: ambulatory Limitations: no limitations History of Present Illness HPI Narrative: Ms. Damien martins is a 37-year-old female patient presenting to clinic today with complaints of fever, nasal congestion, and sore throat. She reports that this has been going on for approximately 3 days. MD elicited complaint: sore throat and nasal congestion Related Data Home Medications Medication Instructions Recorded Confirmed Calcium 600 + D(3) 1 tablet PO DAILY 10/25/19 09/30/21 levothyroxine 75 mcg tablet 75 mcg PO EVERY OTHER DAY 09/27/20 09/30/21 simvastatin 10 mg tablet 10 mg PO DAILY 12/09/20 09/30/21 Actalin Thyroid 2 tab-cap PO DAILY 01/01/21 09/30/21 Apple Cider Vinegar 09/26/21 09/30/21 Seaweed 09/26/21 09/30/21 Allergies Allergy/AdvReac Type Severity Reaction Status Date / Time morphine Allergy Severe LITTLE Verified 08/05/22 09:46 ITCHY BLISTER ON CHEST Review of Systems Review of Systems: Pertinent positives per HPI. Patient denies any rash, headache, visual changes, dizziness, shortness of breath, chest pain, palpitations, nausea, vomiting, diarrhea, constipation, abdominal pain, or any urinary issues. [facility] Past Medical History Medical History Asthma Dyspepsia Dysphagia GERD (gastroesophageal reflux disease) Hyperlipidemia Overweight Overweight (BMI 25.0-29.9) Rectal pain Seasonal allergies Surgical History Surgical History H/O sinus surgery H/O: hysterectomy Previous section Family History Family History Sibling Asthma Father Family history of elevated blood lipids Mother Family history of cardiac disorder Grandparent Diabetes mellitus Family history of cardiac disorder Social History Social History Smoking status: Never smoker Alcohol intake: current Substance use: never Substance use type: does not use Gender identity (if verbalized by the patient): Female Spiritual care concerns: No Comments At the time of my signature, I reviewed and agree with the nursing past medical, surgical, social, and family history. There is no relevant family history pertinent to the patient complaint. Exam Narrative: General: Well-developed, well nourished, in no apparent distress Head: Normocephalic, atraumatic Eyes: Pupils equally round and reactive to light bilaterally, EOM intact, sclera and conjunctive clear, no discharge, lids normal Ears: TMs intact and clear, ear canals clear, no drainage, grossly hearing normal. Nose: Nares patent, clear nasal discharge, no inflammation, no sinus tenderness. Mouth: Oral pharynx without lesions or masses, good dentition, MMM. oropharynx red Neck: Supple, trachea midline, mild enlargement of anterior cervical nodes, no thyroid masses or goiter palpable. Cardio: Regular rate and rhythm, s1 and s2 normal, no murmur appreciated. Resp: Clear to auscultation bilaterally, no rhonchi, rales, wheezing or rubs Course Course Emergency Course: Portions of this record may have been created with voice recognition software. Level of Care: Express Care Visit Vital Signs Vital signs: Vital Signs Temperature 36.5 C 08/05/22 09:40 Pulse Rate 86 08/05/22 09:40 Respiratory Rate 16 08/05/22 09:40 Blood Pressure 103/71 08/05/22 09:40 Pulse Oximetry 100 08/05/22 09:40 Oxygen Delivery Room Air 08/05/22 09:40 Temperature 36.5 C 08/05/22 09:40 Pulse Rate 86 08/05/22 09:40 Respiratory Rate 16 08/05/22 09:40 Blood Pressure 103/71 08/05/22 09:40 Pulse Oximetry 100 12
== END 2022-08-05 10:15 | disposition home or self-care (01) ==
PROVIDERS: Emergency Provider Nurse Practitioner Family; PCP Emergency Medicine
DX: J02.8 Acute pharyngitis due to other specified organisms (principal); J45.909 Unspecified asthma, uncomplicated; E78.5 Hyperlipidemia, unspecified
CPT/HCPCS: 87081; 99212; G0463

== ENCOUNTER 2022-08-31 09:21 | Emergency (ER) | payer OTHER, SELFPAY ==
--- NOTE | 2022-08-31 09:27 | ED.EYEPROB ---
HPI - Eye Problem General Chief complaint: Eye Problems Stated complaint: Right Eye Irritation Time Seen by Provider: 08/31/22 09:27 Source: patient, RN notes reviewed and old records reviewed Mode of arrival: ambulatory Limitations: no limitations History of Present Illness HPI Narrative: [age] year female presents to [facility] right eye irritation after getting so this in her eye yesterday. Flushed it out right away. Woke up this morning with eyes crusted over and irritation chief complaint: eye pain and eye redness Onset (ago): day(s) (1) Related Data Patient tetanus UTD: Yes Home Medications Medication Instructions Recorded Confirmed Calcium 600 + D(3) 1 tablet PO DAILY 10/25/19 08/31/22 levothyroxine 75 mcg tablet 75 mcg PO EVERY OTHER DAY 09/27/20 08/31/22 simvastatin 10 mg tablet 10 mg PO DAILY 12/09/20 08/31/22 Actalin Thyroid 2 tab-cap PO DAILY 01/01/21 08/31/22 Apple Cider Vinegar 09/26/21 09/30/21 Seaweed 09/26/21 09/30/21 Allergies Allergy/AdvReac Type Severity Reaction Status Date / Time morphine Allergy Severe LITTLE Verified 08/31/22 09:32 ITCHY BLISTER ON CHEST Review of Systems Review of Systems: All systems reviewed & are unremarkable except as noted in HPI and below Constitutional: Constitutional: Reports no additional constitutional complaints Eyes: Eyes: Reports as per HPI and Denies change in vision ENT: Reports system reviewed and no additional complaints, except as documented Cardiovascular: Cardiovascular: Reports no additional cardiovascular complaints, Denies chest pain and Denies dyspnea Respiratory: Respiratory: Reports no additional respiratory complaints, Denies chest congestion, Denies cough and Denies dyspnea Gastrointestinal: Gastrointestinal: Reports no additional gastrointestinal complaints, Denies abdominal pain, Denies nausea and Denies vomiting Musculoskeletal: Musculoskeletal: Reports no additional musculoskeletal complaints Integumentary/Breasts: Skin/Breast: Reports system reviewed and no additional complaints, except as docu Neurologic: Reports system reviewed and no additional complaints, except as documented Psychiatric: Psychiatric: Reports no additional psychiatric complaints Allergic/Immunologic: Allergic/Immunologic: Reports no additional allergic/immunologic complaints PMFSH Past Medical History Medical History Asthma Dyspepsia Dysphagia GERD (gastroesophageal reflux disease) Hyperlipidemia Overweight Overweight (BMI 25.0-29.9) Rectal pain Seasonal allergies Surgical History Surgical History H/O sinus surgery H/O: hysterectomy Previous section Family History Family History Sibling Asthma Father Family history of elevated blood lipids Mother Family history of cardiac disorder Grandparent Diabetes mellitus Family history of cardiac disorder Social History Social History Smoking status: Never smoker Alcohol intake: current Substance use: never Substance use type: does not use Gender identity (if verbalized by the patient): Female Spiritual care concerns: No Comments At the time of my signature, I reviewed and agree with the nursing past medical, surgical, social, and family history. There is no relevant family history pertinent to the patient complaint. Exam Const: General: cooperative, healthy appearing, comfortable, no acute distress, well developed, alert and well nourished Nutritional Appearance: well nourished Orientation/consciousness: patient oriented x3 Limitations: no limitations HENMT: Head: normal to inspection Ears: hearing grossly normal bilaterally and external ears normal Face/Nose/Sinus: Normal external nose present, Normal nares present, Normal
[2022-08-31 09:30] VITALS: BP 100/63; PULSE 62; RESP 18; TEMP 36.4; O2SAT 100
[2022-08-31] MEDS: FLUORESCEIN SOD 1 MG/STRIP EACH EYE (09:58)
[2022-08-31] MEDS: TETRACAINE HCL 0.5% OPHTH SOLN 4 ML BTL 1 DROP EACH EYE (09:58)
== END 2022-08-31 09:55 | disposition home or self-care (01) ==
PROVIDERS: Emergency Provider Nurse Practitioner; PCP Emergency Medicine
DX: H10.9 Unspecified conjunctivitis (principal); J45.909 Unspecified asthma, uncomplicated; E78.5 Hyperlipidemia, unspecified
CPT/HCPCS: 99213; A9270; G0463

== ENCOUNTER 2022-12-28 11:09 | Outpatient (CLI) | payer OTHER, SELFPAY ==
--- NOTE | ~2022-12-28 | US_ITS ---
EXAMINATION: US thyroid DATE: 12/28/2022 11:34 INDICATION: Goiter. TECHNIQUE: Multiple ultrasound images of the thyroid were obtained. COMPARISON: Ultrasound 01/26/2022 FINDINGS: The right thyroid lobe measures 4.7 x 1.8 x 1.5 cm. The left thyroid lobe measures 4.2 x 1.6 x 1.5 c m. The thyroid demonstrates heterogeneous echogenicity. No discrete nodule. Vascular flow is normal. IMPRESSION: 1. Heterogeneous thyroid, likely chronic lymphocytic (Lynda) thyroiditis. Reviewed, dictated and finalized at location A.
== END 2022-12-28 11:10 | disposition home or self-care (01) ==
PROVIDERS: PCP Emergency Medicine; Visit Provider Internal Medicine Endocrinology, Diabetes & Metabolism
DX: E04.9 Nontoxic goiter, unspecified (principal)
CPT/HCPCS: 76536

== ENCOUNTER 2023-01-06 21:46 | Emergency (ER) | payer OTHER, SELFPAY ==
--- NOTE | ~2023-01-06 | CT_ITS ---
EXAMINATION: CT thoracic spine wo con DATE: 01/06/2023 22:11 INDICATION: fall, pain . TECHNIQUE: Computed tomography (CT) of the thoracic spine was performed without intravenous contrast. Automated exposure control and iterative reconstruction technique were employed. The dose-length pro duct was 470.29 mGy-cm. COMPARISON: [facility] 09/13/2020; x-ray chest 10/28/2021. FINDINGS: THORACIC SPINE: Vertebral body alignment intact. Vertebral body heights preserved. No disc space narrowing. No trauma tic malalignment or fracture. Visualized lung parenchyma is clear. IMPRESSION: No acute fracture or traumatic malalignment detected in the thoracic spine. Reviewed, dictated and finalized at location K.
--- NOTE | ~2023-01-06 | CT_ITS ---
EXAMINATION: CT cervical spine wo con DATE: 01/06/2023 22:07 INDICATION: fall, pain TECHNIQUE: Computed tomography (CT) of the cervical spine was performed with intravenous contrast. Au tomated exposure control and iterative reconstruction technique were employed. The dose-length produc t was 309.75 mGy-cm. COMPARISON: None. FINDINGS: Vertebral Body Alignment: Intact. Slight reversal of the normal cervical lordosis centered at C5. Craniocervical and atlantoaxial alignment: No significant degenerative change. Alignment intact. Osseous structures/fracture: No evidence of a lytic or blastic process in the visualized spine. No e vidence of acute fracture. . Cervical soft tissues: The paraspinal soft tissues planes are maintained. Degenerative changes: No significant degenerative changes. IMPRESSION: No acute fracture or traumatic malalignment in the cervical spine. Reviewed, dictated and finalized at location K.
--- NOTE | ~2023-01-06 | CT_ITS ---
EXAMINATION: CT brain wo con DATE: 01/06/2023 22:05 INDICATION: fall, pain . TECHNIQUE: Computed tomography (CT) of the head was performed without intravenous contrast. The mA wa s adjusted according to patient size. Iterative reconstruction technique was employed. The dose-lengt h product was 681.00 mGy-cm. COMPARISON: 11/29/2018. FINDINGS: No acute intracranial hemorrhage or extra-axial fluid collection. No hydrocephalus, mass, or herniation. No acute ischemic infarct. Unremarkable dural venous sinus attenuation. No acute osseous abnormality. The aerated spaces are clear. IMPRESSION: No acute intracranial process. Reviewed, dictated and finalized at location K.
[2023-01-06 21:47] VITALS: BP 120/80; PULSE 65; RESP 20; TEMP 36.2; O2SAT 100
--- NOTE | 2023-01-06 23:35 | ED.BACK ---
HPI - Back Pain/Injury General Chief Complaint: Back Pain/Injury Stated Complaint: fall Time Seen by Provider: 01/06/23 23:12 History of Present Illness HPI Narrative: Patient is a 37-year-old female here for evaluation after head injury tonight. Patient states that she was helping a baby bird that was up and down her porch back into its last when the mother bird flew out of the nest, allowing the patient, causing her to fall backwards and strike her head on the porch. Denies loss of consciousness. Since the fall she has had a posterior headache and is having some pain around her bra line. No weakness, visual changes, blood thinner use, numbness or tingling in the hands or feet. Related Data Home Medications Medication Instructions Recorded Confirmed Calcium 600 + D(3) 1 tablet PO DAILY 10/25/19 08/31/22 levothyroxine 75 mcg tablet 75 mcg PO EVERY OTHER DAY 09/27/20 01/06/23 simvastatin 10 mg tablet 10 mg PO DAILY 12/09/20 08/31/22 Actalin Thyroid 2 tab-cap PO DAILY 01/01/21 08/31/22 Apple Cider Vinegar 09/26/21 09/30/21 Seaweed 09/26/21 09/30/21 Allergies Allergy/AdvReac Type Severity Reaction Status Date / Time morphine Allergy Severe LITTLE Verified 01/06/23 22:57 ITCHY BLISTER ON CHEST Review of Systems Review of Systems: Gen.: Denies fevers or chills Eyes: Denies eye pain or visual change ENT: Denies congestion Respiratory: Denies shortness of breath or cough CV: Denies chest pain or palpitations GI: Denies abdominal pain nausea, emesis or diarrhea denies burning, urgency, frequency or hematuria Musculoskeletal: Reports back pain Neuro: Reports headache. Denies numbness, tingling, weakness or focal weakness Skin: Denies rash Except as documented, all other systems reviewed and negative [facility] Past Medical History Medical History Asthma Dyspepsia Dysphagia GERD (gastroesophageal reflux disease) Hyperlipidemia Overweight Overweight (BMI 25.0-29.9) Rectal pain Seasonal allergies Surgical History Surgical History H/O sinus surgery H/O: hysterectomy Previous section Family History Family History Sibling Asthma Father Family history of elevated blood lipids Mother Family history of cardiac disorder Grandparent Diabetes mellitus Family history of cardiac disorder Social History Social History Smoking status: Never smoker Alcohol intake: current Substance use: never Substance use type: does not use Living arrangements: with family Gender identity (if verbalized by the patient): Female Spiritual care concerns: No Exam Narrative: APPEARANCE: Well appearing, no pain in distress, well-nourished. Head: Tenderness to palpation along the posterior scalp without any obvious abrasion or laceration. Normocephalic and atraumatic. EYES: PERRLA/EOMI, conjunctivae clear NOSE: No nasal drainage EARS: External ear normal in appearance THROAT: Oropharynx is clear. Mucous membranes are moist. NECK: No tenderness to the C-spine. Supple. No adenopathy, no masses. RESPIRATORY: Airway patent, respirations nonlabored. Clear to auscultation bilaterally, no rales, rhonchi, wheezing. CARDIOVASCULAR: Regular rate and rhythm without murmurs, rubs, or gallops. ABDOMINAL: Normoactive bowel sounds. Soft, nontender, nondistended. No rebound tenderness or guarding. MUSCULOSKELETAL: Tenderness to palpation along the T4-T5. NEURO: Normal speech. No focal neurologic deficits. SKIN: Skin is warm and dry. No rashes. PSYCHIATRIC: Normal affect/mood. Course Vital Signs Vital signs: Vital Signs Temperature 97.2 F L 01/06/23 21:47 Pulse Rate 65 01/06/23 21:47 Respiratory Rate 20 01/06/23 21:47 Blood Pressure 120/80
[2023-01-06 23:57] VITALS: BP 123/74; PULSE 64; RESP 15; O2SAT 100
== END 2023-01-06 23:59 | disposition home or self-care (01) ==
LOC: ANHED 23:45
PROVIDERS: Emergency Provider Physician Assistant; PCP Emergency Medicine
DX: S09.90XA Unspecified injury of head, initial encounter (principal); J45.909 Unspecified asthma, uncomplicated; E78.5 Hyperlipidemia, unspecified; K21.9 Gastro-esophageal reflux disease without esophagitis; E66.3 Overweight; Z68.29 Body mass index [BMI] 29.0-29.9, adult; Z90.710 Acquired absence of both cervix and uterus; W18.39XA Other fall on same level, initial encounter
CPT/HCPCS: 70450; 72125; 72128; 99284

== ENCOUNTER 2023-12-13 12:33 | Outpatient (CLI) | payer OTHER, SELFPAY ==
--- NOTE | ~2023-12-13 | US_ITS ---
EXAMINATION: US thyroid DATE: 12/13/2023 13:27 INDICATION: Nontoxic goiter TECHNIQUE: Multiple ultrasound images of the thyroid were obtained. COMPARISON: None. FINDINGS: The right thyroid lobe measures 4.1 x 1.5 x 1.2 cm. The left thyroid lobe measures 3.2 x 0.9 x 1.2 c m. The isthmus measures 0.2 cm. There is normal echotexture and echogenicity throughout the thyroid g land. No discrete nodules identified. Normal vascular flow is present. IMPRESSION: Normal thyroid ultrasound findings. Reviewed, dictated and finalized at location K.
== END 2023-12-13 12:34 | disposition home or self-care (01) ==
PROVIDERS: PCP Emergency Medicine; Visit Provider Internal Medicine
DX: E04.9 Nontoxic goiter, unspecified (principal)
CPT/HCPCS: 76536

== ENCOUNTER 2025-04-13 14:29 | Emergency (ER) | payer OTHER, SELFPAY ==
[2025-04-13] VITALS (10 sets, daily range): BP systolic 108–119; BP diastolic 65–87; PULSE 64–86; RESP 12–20; TEMP 36.3; O2SAT 98–100
--- NOTE | ~2025-04-13 | XR_ITS ---
EXAMINATION: XR chest 2V 04/13/2025 15:05 INDICATION: CP TECHNIQUE:Frontal and lateral images of the chest were obtained. COMPARISON: 09/13/2020 FINDINGS: The lungs are clear. The cardiomediastinal silhouette is within normal limits. There are no pleural effusions. There is no pneumothorax suspected. IMPRESSION: 1: NO ACUTE CARDIOPULMONARY DISEASE. Reviewed, dictated and finalized at location Q.
--- NOTE | 2025-04-13 14:30 | ECG_ITS ---
Test Date: 2025-04-13 14:35:36 Measurements Intervals [place] Rate: 77 P: 45 NH: 118 QRS: 21 QRSD: 88 T: 35 QT: 347 QTc: 393 Interpretive Statements SINUS RHYTHM WITH SHORT NH INTERVAL WITH FREQUENT VENTRICULAR PREMATURE COMPLEXES LOW QRS VOLTAGE IN PRECORDIAL LEADS POSSIBLE RIGHT VENTRICULAR CONDUCTION DELAY DELAYED PRECORDIAL R/S TRANSITION BORDERLINE T WAVE ABNORMALITY- ANTEROLAT/INF LEADS BASELINE ARTIFACT- I, II, III, AVR, AVL, AVF ABNORMAL ECG No previous ECG available for comparison Electronically Signed On 04-13-2025 16:04:03 CDT by Dandy Frost D.O.
--- OUTSIDE RECORDS SUMMARY | 2025-04-13 14:31 | XMS_ITS | Clinical Summary ---
Author Organization [facility] Shahab P. Tabatabai, Broker Address [address] [place] [address] Care Team Providers Care Edge Gluer Name Role Phone None, Physician Primary Care Provider Unavailabl e Source Comments [facility] Shahab P. Tabatabai, Broker,non-owned Affiliates and Associated Physician Practices is amultiple site organization consisting of ambulatory clinics and hospital sitesin [place], [place], [place] and [place]. This disclosure is being madepursuant to the Care Everywhere program and may not contain all information available regarding this patient. Last updated 18.[facility] Shahab P. Tabatabai, Broker Allergies Active Allergy Reactions Criticality Noted Date Comments Morphine Itching 10/24/2021 HIVES and blisters Medications * Be aware that medications may not be up to date on this document. Alwaysverify current medications with the patient. metroNIDAZOLE (Metrogel) 0.75 % gelIndications:P eriorificial dermatitis Apply to chin twice daily. 30 days supply. 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/2022 Family History Medical History Relation Name Comments Cancer - Breast Maternal Aunt Zainab 60 Cancer - Breast Maternal Cousin Cancer - Thyroid Maternal Grandfather Thy roid/Throat Cancer - Breast Other 1 Cousin dads side 31 Cancer - Colon Other 2 paternal grandfather Cancer - Esophageal Other 3 Maternal grandfather Cancer - Thyroid Other 4 Grandpa mom s side Cancer - Colon Paternal Grandfather Colon & Stomach Relation Name Status Comments Maternal Aunt Zainab Alive Maternal Cousin Alive Maternal Grandfather Other 1 Cousin dads side Other 2 paternal grandfather Other 3 Maternal grandfather Other 4 Grandpa mom s side Paternal Grandfather Social History Tobacco Use Types Packs/Day Years Used Date Smoking Tobacco: Never Passive Smoke Exposure: Never Smokeless Tobacco: Never Tobacco Cessation:Counseling Given: No Alcohol Use Standard Drinks/Week Comments Never 0 (1 standard drink = 0.6 oz pur e alcohol) Comments No Sex and Gender Information Value Date Recorded Sex Assigned at Not on file Legal Sex Female 9:44 AM CDT Gender Identity Not on file Sexual Orientation Not on file Last Filed Vital Signs Vital Sign Reading Time Taken Comments Blood Pressure 90/66 07/04/2024 1:31 PM MEDIA TRAFFIC MANAGER Pulse 68 07/04/2024 1:31 PM MEDIA TRAFFIC MANAGER Temperature 36.9 C (98.4 F) 07/30/2022 1:19 PM MEDIA TRAFFIC MANAGER Respiratory Rate 18 07/04/2024 1:31 PM MEDIA TRAFFIC MANAGER Oxygen Saturation 98% 07/04/2024 1:31 PM MEDIA TRAFFIC MANAGER Inhaled Oxygen Concentration - - Weight 68.9 kg (152 lb) 07/04/2024 1:31 PM MEDIA TRAFFIC MANAGER Height 152.4 cm (5') 07/04/2024 1:08 PM MEDIA TRAFFIC MANAGER Body Mass Index 29.69 07/04/2024 1:08 PM MEDIA TRAFFIC MANAGER Plan of Treatment Upcoming Encounters Date Type Department Care Team (Late st Contact Info) Description 07/09/2025 10:00 AM MEDIA TRAFFIC MANAGER Appointment [facility] [address] [place] [address] [address] [place] [address] 07/09/2025 10:30 AM MEDIA TRAFFIC MANAGER Office Visit [facility] - [facility] [address] [place] [address], [address] [place] [id number] Renee Pikcering, ROTARY KILN OPERATOR-ELEMENTARY ELL TEACHER Health Maintenance Due Date Last Done Comments LIPID TESTING 1985 HIV SCREENING 2000 HEPATITIS C SCREENING 03/20/2003 DTAP/TDAP/TD VACCINES (1 - Tdap) 2004 HEPATITIS B VACCINE (1 of 3 - 19+ 3-dose series) 2004 HPV VACCINE (1 - 3-dose SCDM series) 2012 COVID-19 VACCINE ( - season) 2024 DEPRESSION SCREENING 08/16/2024 INFLUENZA VACCINE (#1) 2025 MAMMOGRAM 07/04/2026 07/04/2024, 06/29/2023 PAP SMEAR 05/12/2027 05/12/2024, 04/17, 06/07/2023, Additional history exists ZOSTER VACCINE (1 of 2) 2035 HIB VACCINE Aged Out No longer eligi ble based on patient's age to complete this topic MENINGOCOCCAL (Group B) VACCINE SHARED DECISION-MAKING Aged Out No longer eligible based on patient's age to complete this topic MENINGOCOCCAL GROUPS A/C/Y/W VACCINE Aged Out No longer eligible based on patient's age to complete this topic PNEUMOCOCCAL VACCINE Aged Out No long er eligible based on patient's age to complete this topic Procedures Procedure Name Priority Date/Time Associated Diagnosis Comments MAMMO BILAT SCREENING W BRIELLE Routine 07/04/2024 1:24 PM MEDIA TRAFFIC MANAGER Visit for screening mammogram from Last 3 Months or Most Recently Relevant to Health Maintenance Results * Mammo Bilat Screening [place] (07/04/2024 1:24 PM MEDIA TRAFFIC MANAGER) Anatomical Region Laterality Modality Breast Bilateral Mammography 07/04/2024 1:37 PM MEDIA TRAFFIC MANAGER Impressions 07/04/2024 1:47 PM MEDIA TRAFFIC MANAGER IMPRESSION: No mammographic evidence of malignancy in either breast. ASSESSMENT: BIRADS Category 1: Negative mammogram. RECOMMENDATION: Bilateral screening mammogram in one year. Thank you for allowing us to participate in the care of your patient. [facility] utilizes [employer] as a reminder system to notify patients of their next recommended mammogram. > Interpreting Provider: Tatyana Al MD on 07/04/2024 1:47 PM Narrative 07/04/2024 1:47 PM MEDIA TRAFFIC MANAGER EXAMINATION: Digital screening mammogram. Low-dose full-field digital breast tomosynthesis examination was performed with synthetic 2D images. Computer assisted detection was utilized. DATE: 07/04/2024 1:25 PM PRIOR: 06/29/2023 and prior mammograms dating back to 2021. BREAST PARENCHYMAL DENSITY: The breasts are heterogeneously dense, which may obscure small masses. FINDINGS: No suspicious masses, areas of architectural distortion or microcalcifications are evident on synthetic 2D mammogram or tomosynthesis images. There has been no significant interval change since the prior examination. Renee Pickering ROTARY KILN OPERATOR-ELEMENTARY ELL TEACHER MAMMO ORDERABLES Final Re sult from Last 3 Months or Most Recently Relevant to Health Maintenance Insurance [facility] Address: [address] [place] [phone] [facility] Address: [address] [place] [phone] Care Teams Edge Gluer Relationship Specialty Start Date End Date None, Physician PCP - General 01/01/25
[2025-04-13 14:50] LABS: Hematocrit 39.2 % (37.0-47.0); Hemoglobin 12.5 g/dL (12.0-15.0); Immature Granulocyte Percent A 0.3 % (0-0.5); Lymphocytes Absolute Auto 2.53 K/mm3 (0.9-3.2); Mean Corpuscular HGB Conc 31.9 g/dl (32-36); Mean Corpuscular Hemoglobin 27.4 pg (26-34); Mean Corpuscular Volume 85.8 fl (80-100); Nucleated Red Blood Cells Absolute Auto 0.000 K/mm3 (0.0-0.012); Nucleated Red Blood Cells Perc 0.0 % (0.0-0.2); Platelet Count Result 267 k/mm3 (150-375); Red Blood Count 4.57 M/mm3 (4.2-5.4); White Blood Count 7.7 K/mm3 (4.5-10.0)
[2025-04-13 15:00] LABS: Alanine Aminotransferase 20 U/L (6-35); Albumin Level 4.0 g/dL (3.5-5.1); Alkaline Phosphatase 39 U/L (38-126); Anion Gap 7 mmol/L (4-12); Aspartate Amino Transferase 26 U/L (14-36); Bilirubin,Total 0.2 mg/dL (0.2-1.3); Blood Urea Nitrogen 13 mg/dL (7-17); Calcium 8.7 mg/dL (8.4-10.2); Carbon Dioxide 27 mmol/L (22-30); Chloride 103 mmol/L (98-107); Estimated CRCL calculation 73 ml/min; Estimated Glomerular Filt Rate > 60; Glucose 90 mg/dL (65-110); Lipase 108 U/L (23-300); Potassium 3.8 mmol/L (3.4-5.0); Sodium 137 mmol/L (137-145); Total Protein 6.5 g/dL (6.3-8.2)
[2025-04-13 15:01] LABS: INR 1.0; Prothrombin Time 13.6 Seconds (11.1-14.7)
[2025-04-13 15:02] LABS: Partial Thromboplastin Time 30.1 Seconds (22.3-36.8)
[2025-04-13 15:12] LABS: Troponin I < 0.012 ng/mL (0.000-0.034)
--- NOTE | 2025-04-13 16:21 | ED.GENADULT ---
HPI - General Adult General Chief complaint: Chest Pain Stated complaint: CP Time Seen by Provider: 04/13/25 15:37 History of Present Illness HPI narrative: 40-year-old female presents to the emergency department for evaluation for left shoulder pain that radiates into her left neck along with left lower rib pain. Patient states symptoms have been gone going for greater than 1 week. Patient does also report some chest tightness at the bottom of her started. Patient indicates her xiphoid process being more tender. Related Data Home Medications ?Medication ?Instructions ?Recorded ?Confirmed ?Last Taken ?Type Vitamin B BYMOUTH 06/22/23 Unknown History Vitamin D sublingual BYMOUTH 06/22/23 Unknown History calcium + Magnesium BYMOUTH 06/22/23 Unknown History Allergies Allergy/AdvReac Type Severity Reaction Status Date / Time morphine Allergy Severe LITTLE Verified 01/23/25 09:04 ITCHY BLISTER ON CHEST Review of Systems Review of Systems: All systems reviewed & are unremarkable except as noted in HPI and below PMFSH Past Medical History Medical History Seasonal allergies GERD (gastroesophageal reflux disease) Rectal pain Overweight Dysphagia Dyspepsia Overweight (BMI 25.0-29.9) Asthma Hyperlipidemia Surgical History Surgical History H/O sinus surgery H/O: hysterectomy Previous section Family History Family History Sibling Asthma Father Family history of elevated blood lipids Mother Family history of cardiac disorder Grandparent Diabetes mellitus Family history of cardiac disorder Social History Social History Smoking status: Never smoker Alcohol intake: current Substance use: never Substance use type: does not use Do You Feel Safe in your Home?: Yes Lack of Transportation: No Lack of Food: Never True Current Housing: I Have Housing Concerned About Future Housing: No Difficulty Paying Gas/Electric Bills: No Difficulty Paying for Meds: No Currently Unemployed: No Education: Trade/Vocational Certificate Difficulty w/ Childcare or Family Care: No Living arrangements: with family Gender identity (if verbalized by the patient): Female Spiritual care concerns: No Exam Narrative: APPEARANCE: Well appearing, no pain, no distress, well-nourished. HEAD: normocephalic, atraumatic. EYES: PERRLA/EOMI, conjunctivae clear. NOSE: Normal no drainage EARS:TMS clear with good light reflex. THROAT: Pharynx clear, no exudate. NECK: Supple. No adenopathy, no masses. RESPIRATORY: Airway patent, respirations nonlabored. Clear to auscultation bilaterally, no rales, rhonchi, wheezing. CARDIOVASCULAR: Regular rate and rhythm without murmurs rubs or gallops. ABDOMINAL: Soft, nontender, nondistended, normal bowel sounds MUSCULOSKELETAL: Tenderness of left trapezius in to left cervical spine NEURO: Alert. Cranial nerves II through XII intact. Good gait. Good coordination SKIN: Warm, dry. Normal Color Course Vital Signs Vital signs: Vital Signs Temperature 97.4 F L 04/13/25 14:36 Pulse Rate 64 04/13/25 14:36 Respiratory Rate 20 04/13/25 14:36 Blood Pressure 112/68 04/13/25 14:36 Pulse Oximetry 100 04/13/25 14:36 Oxygen Delivery Room Air 04/13/25 14:36 Temperature 97.4 F L 04/13/25 14:36 Pulse Rate 72 04/13/25 17:06 Respiratory Rate 16 04/13/25 17:06 Blood Pressure 108/67 04/13/25 16:46 Pulse Oximetry 100 04/13/25 17:06 Oxygen Delivery Room Air 04/13/25 14:36 Medical Decision Making [facility] Narrative Medical decision making narrative: 40-year-old female presents emergency department for evaluation for shoulder pain and left-sided rib pain. Patient is afebrile with no leukocytosis hemoglobin of 12.5. Patient's INR is 1.0 and patient's D-dimer was not elevated. Patient's troponin was negative. Patient has no acute abnormalities on her CMP and chest x-ray shows no acute cardiopulmonary abnormality. EKG showed no evidence of acute STEMI. All questions concerns were addressed and patient was comfortable with plan for discharge and close follow-up. Suspect muscular etiology as potential underlying cause for the patient's symptoms. Low concern for pulmonary embolism, pneumonia, pneumothorax, ACS. Differential Diagnosis Differential Diagnosis: Pneumonia, pneumothorax, COVID, RSV influenza, ACS, muscular strain Vital Signs Vital Signs: Vital Signs Temperature 97.4 F L 04/13/25 14:36 Pulse Rate 64 04/13/25 14:36 Respiratory Rate 20 04/13/25 14:36 Blood Pressure 112/68 04/13/25 14:36 Pulse Oximetry 100 04/13/25 14:36 Oxygen Delivery Room Air 04/13/25 14:36 Temperature 97.4 F L 04/13/25 14:36 Pulse Rate 72 04/13/25 17:06 Respiratory Rate 16 04/13/25 17:06 Blood Pressure 108/67 04/13/25 16:46 Pulse Oximetry 100 04/13/25 17:06 Oxygen Delivery Room Air 04/13/25 14:36 Lab Data Lab results reviewed: Yes I reviewed the patient's lab results. 04/13/25 14:41 04/13/25 14:41 Labs: Lab Results 04/13/25 04/13/25 Range/Units 14:41 17:37 WBC 7.7 (4.5-10.0) K/mm3 RBC 4.57 (4.2-5.4) M/mm3 Hgb 12.5 (12.0-15.0) g/dL Hct 39.2 (37.0-47.0) % MCV 85.8 (80-100) fl MCH 27.4 (26-34) pg MCHC 31.9 L (32-36) g/dl RDW 13.8 (11.5-14.5) % Plt Count 267 (150-375) k/mm3 MPV 10.4 (7.4-10.4) fl Immature Gran % (Auto) 0.3 (0-0.5) % Neut % (Auto) 57.8 (45.5-73.1) % Lymph % (Auto) 32.9 (18.3-44.2) % [place] % (Auto) 6.2 (2.6-8.5) % Eos % (Auto) 2.3 (0-4.4) % Baso % (Auto) 0.5 (0.2-1.2) % Lymph # (Auto) 2.53 (0.9-3.2) K/mm3 [place] # (Auto) 0.5 (0.1-0.6) K/mm3 Eos # (Auto) 0.2 (0-0.3) K/mm3 Baso # (Auto) 0.0 (0.0-0.1) K/mm3 Abs Immat Gran (auto) 0.02 (0.00-0.031) K/mm3 Absolute Neuts (auto) 4.5 (1.3-6.7) K/mm3 Absolute Nucleated RBC 0.000 (0.0-0.012) K/mm3 Nucleated RBC % 0.0 (0.0-0.2) % PT 13.6 (11.1-14.7) Seconds INR 1.0 APTT 30.1 (22.3-36.8) Seconds D-Dimer < 0.27 (<0.48) ug/mL Sodium 137 (137-145) mmol/L Potassium 3.8 (3.4-5.0) mmol/L Chloride 103 (98-107) mmol/L Carbon Dioxide 27 (22-30) mmol/L Anion Gap 7 (4-12) mmol/L BUN 13 (7-17) mg/dL Creatinine 0.77 (0.7-1.0) mg/dL Estim Creat Clear Calc 73 ml/min Estimated GFR > 60 (59 - ) Glucose 90 (65-110) mg/dL Calcium 8.7 (8.4-10.2) mg/dL Total Bilirubin 0.2 (0.2-1.3) mg/dL AST 26 (14-36) U/L ALT 20 (6-35) U/L Alkaline Phosphatase 39 (38-126) U/L Troponin I < 0.012 < 0.012 (0.000-0.034) ng/mL Total Protein 6.5 (6.3-8.2) g/dL Albumin 4.0 (3.5-5.1) g/dL Lipase 108 (23-300) U/L Imaging Data Radiologist's impression: Impressions Chest X-Ray 04/13/25 15:16 IMPRESSION: 1: NO ACUTE CARDIOPULMONARY DISEASE. ECG Data EKG #1: EKG Interpretation: normal rate, sinus rhythm, no ectopy, non-specific ST changes, normal QRS, normal QT and NL axis Discharge Plan Discharge Clinical Impression: Neck pain, Rib pain, Strain of cervical portion of left trapezius muscle Patient Disposition: Home Condition: Stable Instructions: Antibiotic Form, Chest Pain (ED) Additional Instructions: Ibuprofen for pain control. Flexeril for muscle spasm. Have close follow-up with your primary care physician. If you have any worsening symptoms then please call or return to the emergency department. Patient Language: Setswana Prescriptions: New cyclobenzaprine 10 mg tablet 10 mg PO BID PRN (Reason: muscle spasm) Qty: 14 0RF No Action calcium + Magnesium BYMOUTH Vitamin D sublingual BYMOUTH Vitamin B BYMOUTH levothyroxine 25 mcg tablet See Rx Instructions .ROUTE .COMPLEX Qty: 90 3RF Dose Instruction: TAKE 1 TABLET DAILY Rx Instructions: TAKE 1 TABLET DAILY liothyronine 5 mcg tablet See Rx Instructions .ROUTE .COMPLEX Qty: 45 2RF Rx Instructions: TAKE 1/2 TAB PO ONCE DAILY Follow-up/Referrals: Rahul Lagos MD [Primary Care Provider, Family Practice] Quality HEART score for chest pain patients History: slightly suspicious ECG: normal Age: < or = to 45 years Risk factors: 1 or 2 risk factors Troponin: < or = to 1x normal limit Heart score: 1
[2025-04-13] MEDS: CYCLOBENZAPRINE HCL 10 MG TABLET PO (17:29)
--- NOTE | 2025-04-13 17:29 | ECG_ITS ---
Test Date: 2025-04-13 17:34:44 Measurements Intervals [place] Rate: 65 P: 51 NJ: 156 QRS: 22 QRSD: 85 T: 15 QT: 368 QTc: 384 Interpretive Statements SINUS RHYTHM LOW QRS VOLTAGE IN PRECORDIAL LEADS POSSIBLE RIGHT VENTRICULAR CONDUCTION DELAY BASELINE WANDER- III, AVF BORDERLINE ECG Compared to ECG 04/13/2025 14:35:36 Ventricular premature complex(es) no longer present Short [place] interval no longer present Electronically Signed On 04-13-2025 19:34:33 CDT by Dandy Frost D.O.
[2025-04-13] MEDS: ASPIRIN 81 MG CHEWABLE TABLET 324 MG PO (17:30)
[2025-04-13] MEDS: KETOROLAC 15 MG/ML VIAL (*BKC) IV PUSH (17:30)
[2025-04-13 18:04] LABS: Troponin I < 0.012 ng/mL (0.000-0.034)
== END 2025-04-13 19:16 | disposition home or self-care (01) ==
PROVIDERS: Emergency Medicine; Emergency Provider Emergency Medicine; PCP Emergency Medicine
DX: S16.1XXA Strain of muscle, fascia and tendon at neck level, initial encounter (principal); R07.81 Pleurodynia; R07.89 Other chest pain; X58.XXXA Exposure to other specified factors, initial encounter; I49.3 Ventricular premature depolarization; R94.31 Abnormal electrocardiogram [ECG] [EKG]
CPT/HCPCS: 36415; 71046; 80053; 83690; 84484; 85025; 85380; 85610; 85730; 93005; 96374; 99284; A9270; J1885

== ENCOUNTER 2025-05-07 09:51 | Outpatient (CLI) | payer OTHER, SELFPAY ==
--- NOTE | 2025-05-07 09:57 | EST_ITS ---
Patient Info Name: Sruthi Evangelista Age: 40 years : 1985 Gender: Female Ht: 60 in Wt: 155 lbs BSA: 1.75 m2 HR: 58 bpm BP: 92 / 60 mmHg Exam Date: 05/07/2025 9:57 AM Patient Status: O Admit Date: 05/07/2025 Exam Type: CA stress test treadmill A treadmill exercise stress test was performed. Staff Attending Provider: Dandy Frost DO Exercise Technologist: Abeba Galaviz Exercise Physician: Dandy Frost DO Summary 1. 1. Negative Hussain exercise stress test for ischemic ST changes by ECG criteria. 2. 2. Reduced functional capacity, achieving 7 METs of workload. 3. 3. Appropriate HR response to exercise. 4. 4. Appropriate HR recovery at 1 minute post exercise. 5. 5. No imaging with stress testing. 6. 6. Patient informed of the above results. Protocol: Hussain Stress ECG Details Stage: REST Duration (min): 0 min : 29 sec Speed (mph): 0.0 Grade (%): 0 HR (bpm): 59 SBP (mmHg): --- DBP (mmHg): --- METS: --- Stage: REST Duration (min): 6 min : 50 sec Speed (mph): 0.0 Grade (%): 0 HR (bpm): 79 SBP (mmHg): 92 DBP (mmHg): 60 METS: --- Stage: STAGE 1 Duration (min): 1 min : 0 sec Speed (mph): 1.7 Grade (%): 10 HR (bpm): 109 SBP (mmHg): 92 DBP (mmHg): 60 METS: --- Stage: STAGE 1 Duration (min): 2 min : 0 sec Speed (mph): 1.7 Grade (%): 10 HR (bpm): 119 SBP (mmHg): 92 DBP (mmHg): 60 METS: --- Stage: STAGE 1 Duration (min): 3 min : 0 sec Speed (mph): 1.7 Grade (%): 10 HR (bpm): 119 SBP (mmHg): 111 DBP (mmHg): 55 METS: --- Stage: STAGE 2 Duration (min): 1 min : 0 sec Speed (mph): 2.5 Grade (%): 12 HR (bpm): 133 SBP (mmHg): 111 DBP (mmHg): 55 METS: --- Stage: STAGE 2 Duration (min): 2 min : 0 sec Speed (mph): 2.5 Grade (%): 12 HR (bpm): 149 SBP (mmHg): 139 DBP (mmHg): 61 METS: --- Stage: STAGE 2 Duration (min): 3 min : 0 sec Speed (mph): 2.5 Grade (%): 12 HR (bpm): 154 SBP (mmHg): 139 DBP (mmHg): 61 METS: --- Stage: STAGE 3 Duration (min): 0 min : 1 sec Speed (mph): 3.4 Grade (%): 14 HR (bpm): 154 SBP (mmHg): 139 DBP (mmHg): 61 METS: --- Stage: RECOVERY Duration (min): 0 min : 58 sec Speed (mph): 0.0 Grade (%): 0 HR (bpm): 110 SBP (mmHg): 126 DBP (mmHg): 67 METS: --- Stage: RECOVERY Duration (min): 1 min : 58 sec Speed (mph): 0.0 Grade (%): 0 HR (bpm): 90 SBP (mmHg): 126 DBP (mmHg): 67 METS: --- Stage: RECOVERY Duration (min): 2 min : 46 sec Speed (mph): 0.0 Grade (%): 0 HR (bpm): 74 SBP (mmHg): 115 DBP (mmHg): 64 METS: --- Rest HR: 79 bpm Peak HR: 159 bpm Rest Sys BP: 92 mmHg Peak Sys BP: 139 mmHg Max Pred HR: 180 bpm % Max Pred HR: 88 % Target HR: 153 bpm Max RPP: 22,101 bpm*mmHg Cisneros Score: 2 Termination Reason: Reached target heart rate or workload Cardiac Symptoms: Shortness of breath Max ST Seg Deviation: -0.90 mm Total Time: 6 min : 1 sec Rest Reis BP: 60 mmHg Peak Reis BP: 61 mmHg Angina Score: None Total METS: 7.1 Resting ECG Sinus rhythm. Stress ECG No ST changes. Arrhythmias None. Report Signatures
--- OUTSIDE RECORDS SUMMARY | 2025-05-07 10:58 | XMS_ITS | Clinical Summary ---
Author Organization [facility] [employer] Address [address] [place] [address] Care Team Providers Care Linux Systems Administrator Name Role Phone None, Physician Primary Care Provider Unavailabl e Source Comments [facility] [employer],non-owned Affiliates and Associated Physician Practices is amultiple site organization consisting of ambulatory clinics and hospital sitesin [place], [place], [place] and [place]. This disclosure is being madepursuant to the Care Everywhere program and may not contain all information available regarding this patient. Last updated 18.[facility] [employer] Allergies Active Allergy Reactions Criticality Noted Date [...] Comments Blood Pressure 90/66 07/04/2024 1:31 PM MASONRY INSTALLER Pulse 68 07/04/2024 1:31 PM MASONRY INSTALLER Temperature 36.9 C (98.4 F) 07/30/2022 1:19 PM MASONRY INSTALLER Respiratory Rate 18 07/04/2024 1:31 PM MASONRY INSTALLER Oxygen Saturation 98% 07/04/2024 1:31 PM MASONRY INSTALLER Inhaled Oxygen Concentration - - Weight 68.9 kg (152 lb) 07/04/2024 1:31 PM MASONRY INSTALLER Height 152.4 cm (5') 07/04/2024 1:08 PM MASONRY INSTALLER Body Mass Index 29.69 07/04/2024 1:08 PM MASONRY INSTALLER Plan of Treatment Upcoming Encounters Date Type Department Care Team (Late st Contact Info) Description 07/09/2025 10:00 AM MASONRY INSTALLER Appointment [facility] [address] [place] [address] [address] [place] [address] 07/09/2025 10:30 AM MASONRY INSTALLER Office Visit [facility] - Surgery [address] [place] [address], [address] [place] [id number] Renee Pickering, RENTAL REPRESENTATIVE-CARRIER PACKER Health Maintenance Due Date Last Done Comments LIPID TESTING 1985 HIV SCREENING 2000 HEPATITIS C SCREENING 03/20/2003 DTAP/TDAP/TD VACCINES (1 - Tdap) 2004 HEPATITIS B VACCINE (1 of 3 - 19+ 3-dose series) 2004 HPV VACCINE (1 - 3-dose SCDM series) 2012 DEPRESSION SCREENING 08/16/2024 COVID-19 VACCINE ( - season) 2025 INFLUENZA VACCINE (#1) 2025 MAMMOGRAM 07/04/2026 07/04/2024, [...] SCREENING W BRIELLE Routine 07/04/2024 1:24 PM MASONRY INSTALLER Visit for screening mammogram from Last 3 Months or Most Recently Relevant to Health Maintenance Results * Mammo Bilat Screening [place] (07/04/2024 1:24 PM MASONRY INSTALLER) Anatomical Region Laterality Modality Breast Bilateral Mammography 07/04/2024 1:37 PM MASONRY INSTALLER Impressions 07/04/2024 1:47 PM MASONRY INSTALLER IMPRESSION: No mammographic evidence of malignancy in either breast. ASSESSMENT: BIRADS Category 1: Negative mammogram. RECOMMENDATION: Bilateral screening mammogram in one year. Thank you for allowing us to participate in the care of your patient. [facility] utilizes [employer] as a reminder system to notify patients of their next recommended mammogram. > Interpreting Provider: Tatyana Al MD on 07/04/2024 1:47 PM Narrative 07/04/2024 1:47 PM MASONRY INSTALLER EXAMINATION: Digital screening mammogram. Low-dose full-field digital [...] change since the prior examination. Renee Pickering RENTAL REPRESENTATIVE-CARRIER PACKER MAMMO ORDERABLES Final Re sult from Last 3 Months or Most Recently Relevant to Health Maintenance Insurance [facility] COUNTS INCLUDE [facility]EDS AT [facility] Address: [address] [place] [address] COUNTS INCLUDE 234 BEDS AT THE [facility] Address: [address] [place] [phone] Care Teams Linux Systems Administrator Relationship Specialty Start Date End Date None, Physician PCP - General 01/01/25
== END 2025-05-07 09:52 | disposition home or self-care (01) ==
PROVIDERS: PCP Emergency Medicine; Visit Provider Internal Medicine Cardiovascular Disease
DX: R07.9 Chest pain, unspecified (principal)
CPT/HCPCS: 93017

== ENCOUNTER 2025-05-22 07:51 | Outpatient (CLI) | payer OTHER, SELFPAY ==
--- OUTSIDE RECORDS SUMMARY | 2025-05-22 07:57 | XMS_ITS | Clinical Summary ---
Author Organization [facility] [employer] Address [address] [facility] [facility] [place] [address] Care Team Providers Care Director Of Intelligence Name Role Phone None, Physician Primary Care Provider Unavailabl e Source Comments [facility] [employer],non-owned Affiliates and Associated Physician Practices is amultiple site organization consisting of ambulatory clinics and hospital sitesin [place], [place], [place] and [place]. This disclosure is being madepursuant to the Care Everywhere program and may not contain all information available regarding this patient. Last updated 18.[facility] [employer] Allergies Active Allergy Reactions Criticality Noted Date [...] Comments Blood Pressure 90/66 07/04/2024 1:31 PM TIRE SERVICE SUPERVISOR Pulse 68 07/04/2024 1:31 PM TIRE SERVICE SUPERVISOR Temperature 36.9 C (98.4 F) 07/30/2022 1:19 PM TIRE SERVICE SUPERVISOR Respiratory Rate 18 07/04/2024 1:31 PM TIRE SERVICE SUPERVISOR Oxygen Saturation 98% 07/04/2024 1:31 PM TIRE SERVICE SUPERVISOR Inhaled Oxygen Concentration - - Weight 68.9 kg (152 lb) 07/04/2024 1:31 PM TIRE SERVICE SUPERVISOR Height 152.4 cm (5') 07/04/2024 1:08 PM TIRE SERVICE SUPERVISOR Body Mass Index 29.69 07/04/2024 1:08 PM TIRE SERVICE SUPERVISOR Plan of Treatment Upcoming Encounters Date Type Department Care Team (Late st Contact Info) Description 07/09/2025 10:00 AM TIRE SERVICE SUPERVISOR Appointment [facility] [address] [place] [address] [address] [place] [address] 07/09/2025 10:30 AM TIRE SERVICE SUPERVISOR Office Visit [facility] - Surgery [address] [place] [address], [address] [place] [phone] Renee Pickering, PUMP OILER-LIME SLAKER Health Maintenance Due Date Last Done Comments [...] SCREENING W BRIELLE Routine 07/04/2024 1:24 PM TIRE SERVICE SUPERVISOR Visit for screening mammogram from Last 3 Months or Most Recently Relevant to Health Maintenance Results * Mammo Bilat Screening [place] (07/04/2024 1:24 PM TIRE SERVICE SUPERVISOR) Anatomical Region Laterality Modality Breast Bilateral Mammography 07/04/2024 1:37 PM TIRE SERVICE SUPERVISOR Impressions 07/04/2024 1:47 PM TIRE SERVICE SUPERVISOR IMPRESSION: No mammographic evidence of malignancy in either breast. ASSESSMENT: BIRADS Category 1: Negative mammogram. RECOMMENDATION: Bilateral screening mammogram in one year. Thank you for allowing us to participate in the care of your patient. [facility] utilizes [employer] as a reminder system to notify patients of their next recommended mammogram. > Interpreting Provider: Tatyana Al MD on 07/04/2024 1:47 PM Narrative 07/04/2024 1:47 PM TIRE SERVICE SUPERVISOR EXAMINATION: Digital screening mammogram. Low-dose full-field digital [...] change since the prior examination. Renee Pickering PUMP OILER-LIME SLAKER MAMMO ORDERABLES Final Re sult from Last 3 Months or Most Recently Relevant to Health Maintenance Insurance [facility] Care Teams Director Of Intelligence Relationship Specialty Start Date End Date None, Physician PCP - General 01/01/25
--- NOTE | 2025-06-12 12:16 | WPDHOMESLEEP ---
Sleep Study - Home Unattended Date of Study: 05/22/25 Ordering Provider: Dandy Frost DO Interpreting Provider: Olivia Cancino DO Home Sleep Study Type: Watch PAT Height: 1.52 m Weight: 71.214 kg Body Mass Index: 30.7 Neck Circumference (inches): 13 Stuart: 8 Reason for Sleep Study Difficulty falling and staying asleep Sleep History The patient is a 40-year-old female that had a sleep study ordered by her game technician for evaluation of sleep apnea. The patient admits to excessive daytime sleepiness, trouble falling asleep and trouble staying asleep. She denies snoring loudly. She denies having interruptions in breathing while asleep. She denies choking or gasping at night. She does have trouble breathing on her back. She does have morning headaches. She denies having a dry or sore mouth/ throat in the morning. She denies nocturnal heartburn. She denies nocturia. She does have difficulty returning to sleep if she wakes up throughout the night. She denies any hypnotic or sedative use. She denies feeling anxious about sleep. She does feel tired or sleepy during the day. She does feel tired in the morning. She denies having the urge to fall asleep during the day. She denies feeling drowsy while driving. She denies sleep paralysis, cataplexy and hypnagogic/ hypnopompic hallucinations. She does clench or grind her teeth. She denies kicking or jerking her legs excessively. She denies having a restless feeling in her legs. She goes to bed at 10:00 p.m. every night. It takes her 30 minutes to fall asleep. She gets 7 hours of sleep every night. Her sleep is not restorative on her days off. She denies taking any planned naps. She denies dream enactment behavior. She denies sleep walking. She consumes 1-2 cups of caffeinated beverage per day. She denies tobacco and alcohol use. She denies exercising on a regular basis. [facility] Past Medical History Medical History Family history of mitral valve prolapse Essential hypertension Body mass index [BMI] 32.0-32.9, adult (01/26/19) Seasonal allergies GERD (gastroesophageal reflux disease) Rectal pain Overweight Dysphagia Dyspepsia Overweight (BMI 25.0-29.9) Asthma Hyperlipidemia Surgical History Surgical History H/O sinus surgery H/O: hysterectomy Previous section Family History Family History Sibling Asthma Father Family history of elevated blood lipids Mother Family history of cardiac disorder Grandparent Diabetes mellitus Family history of cardiac disorder Social History Social History Smoking status: Never smoker Alcohol intake: current Substance use: never Substance use type: does not use Do You Feel Safe in your Home?: Yes Lack of Transportation: No Lack of Food: Never True Current Housing: I Have Housing Concerned About Future Housing: No Difficulty Paying Gas/Electric Bills: No Difficulty Paying for Meds: No Currently Unemployed: No Education: Trade/Vocational Certificate Difficulty w/ Childcare or Family Care: No Living arrangements: with family Gender identity (if verbalized by the patient): Female Spiritual care concerns: No Medications Home Medications ?Medication ?Instructions ?Recorded ?Confirmed ?Type calcium + Magnesium BYMOUTH 06/22/23 06/12/25 History levothyroxine 25 mcg capsule 12.5 mcg PO DAILY 04/24/25 06/12/25 History liothyronine 5 mcg tablet 2.5 mcg PO DAILY 04/24/25 06/12/25 History vitamin D3 1,250 mcg (50,000 cap PO 04/24/25 06/12/25 History unit)-vitamin K2 200 mcg capsule Sleep Procedure The sleep study was completed using GOPOP.TVT a technically adequate device with seven channels: peripheral arterial tone, actigraphy, body position, snore, respiratory movement, pulse oximetry, sleep staging, and heart rate. Prior to using the device, the patient received verbal and written instructions for its application and was provided with the help desk phone number for additional telephonic instruction with 24-hour availability of qualified personnel to answer questions. The study was scored using CMS guidelines. Sleep Architecture The total recording time is 8 hrs, 53 min. The total sleep time is 7 hrs, 55 min. Sleep latency is 5 minutes. REM latency is 89 minutes. The patient had 7 episodes of waking. Sleep architecture shows 28.6% deep sleep, 40.4% light sleep, and (as % Total Sleep Time) showed NREM (Light 40.4%; Deep 28.6%), and a 30.9% stage REM. The patient spent 50.7% of total sleep time in the supine position. Sleep efficiency was 89.12. Respiratory Analysis The overall AHI (pAHI 4%:) is 0.8. The overall AHI (pAHI 3%:) is 1.5. The central AHI is 0.0. The AHI was 0.7 in NREM and 3.3 in REM sleep. The AHI was 2.5 in Supine and 0.5 in Non-supine sleep. Percent of Kolby Robles respirations is 0.0. Oximetry Data The oxygen desaturation index (KULWINDER 4%:) is 0.4. The mean saturation is 94%, and the lowest saturation is 89%. Time spent with saturation < 88% is 0.0 minutes. Snoring Profile Snoring average intensity is 40 dB. The patient snored above 45 decibels for 5.9 minutes, 1.2% of sleep time. Cardiac Profile The average pulse rate is 72 beats per minutes. The lowest pulse rate is 54 bpm. The highest pulse rate reported is 108 bpm. Atrial fibrillation was not detected. Premature beats occur Not detected per minute. Assessment and Plan Assessment and Plan (1) Sleep disturbances: Code(s): G47.9 - Sleep disorder, unspecified Status: Acute Assessment and Plan: The patient had an overall AHI of 0.8 with desaturation down to 89%. This is not consistent with sleep-disordered breathing. Due to the severity of the patient's symptoms, further evaluation is warranted. I recommend that the patient have a split study with the use of a hypnotic to ensure we obtain enough sleep data. Data The data obtained during this sleep study is adequate for interpretation. Certification This sleep study has been reviewed by a board certified sleep medicine physician.
[2025-06-12 12:18] VITALS: BMI 30.7
== END 2025-05-23 13:16 | disposition home or self-care (01) ==
LOC: ANHCSM 07:52
PROVIDERS: PCP Family Medicine; Visit Provider Internal Medicine Cardiovascular Disease
DX: G47.10 Hypersomnia, unspecified (principal); G47.9 Sleep disorder, unspecified
CPT/HCPCS: 95800